=== PATIENT | male | born 1940 | race Caucasian/White ===

== ENCOUNTER 2017-04-08 07:57 | Observation (INO) | payer MEDICARE ==
[~2017-04-08] VITALS: Ht 185.4 cm; Wt 93.0 kg
[2017-04-08] MEDS ORDERED: SODIUM CHLORIDE 0.9% 1,000 ML IV ONE (08:22)
[2017-04-08 08:37] VITALS: BP 141/72
[2017-04-08] MEDS ORDERED: PLEASE ENTER ALLERGIES MC SCH ×2 (09:00)
[2017-04-08] MEDS ORDERED: PLEASE ENTER HEIGHT AND WEIGHT MC SCH (09:00)
[2017-04-08] MEDS ORDERED: CARV6.2512 PO (09:03)
[2017-04-08] MEDS ORDERED: LOSA50TA6 PO (09:03)
[2017-04-08] MEDS ORDERED: WARF3TAB PO (09:06)
[2017-04-08] MEDS ORDERED: ALLO300T PO (09:06)
[2017-04-08] MEDS ORDERED: WARF4TAB PO (09:06)
[2017-04-08] MEDS ORDERED: LEVO25TA4 PO (09:07)
[2017-04-08] MEDS ORDERED: ATOR20TA9 PO (09:07)
[2017-04-08] MEDS ORDERED: TRAM50TA2 PO (09:08)
[2017-04-08] MEDS ORDERED: MIDAZOLAM 1 MG/ML, 5ML ONE (09:53)
[2017-04-08] MEDS ORDERED: VERAPAMIL 2.5 MG/ML, 2ML ONE (09:53)
[2017-04-08] MEDS ORDERED: FENTANYL PF 100 MCG/2ML ONE (09:53)
[2017-04-08] MEDS ORDERED: TICAGRELOR 90 MG TABLET ONE (09:53)
[2017-04-08] MEDS ORDERED: LIDOCAINE 2%, 20ML ONE (09:54)
[2017-04-08] MEDS ORDERED: HEPARIN 1,000 UNITS/ML, 10ML ONE (09:54)
[2017-04-08] MEDS ORDERED: BIVALIRUDIN 250 MG ONE (09:54)
[2017-04-08] MEDS ORDERED: SODIUM CHLORIDE 0.9% 1,000 ML IV SCH (11:35)
[2017-04-08] MEDS ORDERED: ZOLPIDEM 5MG TABLET PO PRN (12:00)
[2017-04-08] MEDS ORDERED: BISACODYL 5 MG EC TABLET PO PRN (12:00)
[2017-04-08] MEDS ORDERED: ONDANSETRON 2MG/ML, 2ML IVPush PRN (12:00)
[2017-04-08] MEDS ORDERED: CARVEDILOL 6.25 MG TABLET PO STA (13:47)
[2017-04-08] MEDS ORDERED: ACETAMINOPHEN 325 MG TABLET ONE (14:17)
[2017-04-08] MEDS: ACETAMINOPHEN 325 MG TABLET PO PRN (14:18)
[2017-04-08 17:29] VITALS: BP 113/68
[2017-04-08] MEDS: CARVEDILOL 6.25 MG TABLET PO SCH (18:00)
[2017-04-08 19:54] VITALS: BP 112/72
[2017-04-08] MEDS ORDERED: ATORVASTATIN 20 MG TABLET PO SCH (21:00)
[2017-04-08] MEDS: ALLOPURINOL 100 MG TABLET PO SCH (21:17)
[2017-04-08] MEDS: TICAGRELOR 90 MG TABLET PO SCH (21:17)
[2017-04-09 00:18] VITALS: BP 137/81
[2017-04-09 05:03] LABS: HEMATOCRIT 44.7 % (39.2-51.8); HEMOGLOBIN 14.4 g/dL (13.7-18.0)
[2017-04-09] MEDS: CARVEDILOL 6.25 MG TABLET PO SCH (05:09)
[2017-04-09] MEDS: ACETAMINOPHEN 325 MG TABLET PO PRN (05:13)
[2017-04-09] MEDS ORDERED: LEVOTHYROXINE 25 MCG TABLET PO SCH (06:00)
[2017-04-09 07:39] VITALS: BP 116/78
[2017-04-09] MEDS: TICAGRELOR 90 MG TABLET PO SCH (08:53)
[2017-04-09] MEDS: ALLOPURINOL 100 MG TABLET PO SCH (08:53)
[2017-04-09] MEDS ORDERED: ASPIRIN 81 MG TABLET EC PO SCH (09:00)
[2017-04-09] MEDS ORDERED: LOSARTAN 50MG TABLET PO SCH (09:00)
[2017-04-09] MEDS ORDERED: TICA90TA PO (09:09)
[2017-04-09] MEDS ORDERED: WARFARIN 2 MG TABLET PO-COUM SCH (18:00)
[2017-04-10] MEDS ORDERED: WARFARIN 3 MG TABLET PO-COUM SCH (18:00)
[2017-04-14] MEDS ORDERED: LEVO75TA5 PO (15:39)
[2017-04-14] MEDS ORDERED: LOSA25TA5 PO (15:39)
== END 2017-04-09 14:02 | disposition home or self-care (01) ==
LOC: CACL 07:57 → ORIP 11:35 → 5SO 17:15
PROVIDERS: ADMIT Internal Medicine Cardiovascular Disease; ATTEND Internal Medicine Cardiovascular Disease
DX: I25.110 Atherosclerotic heart disease of native coronary artery with unstable angina pectoris (principal); I42.9 Cardiomyopathy, unspecified; I48.91 Unspecified atrial fibrillation; I10 Essential (primary) hypertension; E78.2 Mixed hyperlipidemia; I25.2 Old myocardial infarction
CPT/HCPCS: 36415; 85014; 85018; 85610; 93005; 93458; 99156; 99157; C1725; C1769; C1874; C1887; C1894; G0378; J0583; J2250; J3010; J3490; Q9967; J1644

== ENCOUNTER → 2017-11-21 | Outpatient (CLI) | payer MEDICARE, BC ==
[~2017-11-21] MED LIST: ALLO100T30 PO; ALLO300T PO; ATOR20TA9 PO; CARV6.2512 PO; DOCU-131 PO; LEVO25TA4 PO; LEVO75TA5 PO; LOSA25TA5 PO; LOSA50TA6 PO; MAGN400T7 PO; PANT40TA5 PO; RIVA20TA PO; SPIR25TA PO; TEMA15CA6 PO; TICA90TA PO; TRAM50TA2 PO; TRIA1KIT12 TP; WARF3TAB PO; WARF4TAB PO
== END | disposition home or self-care (01) ==
LOC: CVU 14:25
PROVIDERS: ATTEND Physician Assistant
DX: Z01.818 Encounter for other preprocedural examination (principal); I42.9 Cardiomyopathy, unspecified; I10 Essential (primary) hypertension; I25.2 Old myocardial infarction
CPT/HCPCS: 93306

== ENCOUNTER 2018-03-10 12:00 | Inpatient (IN) | payer MEDICARE, BC ==
[~2018-03-10] VITALS: Ht 185.4 cm; Wt 90.0 kg
[~2018-03-10 12:00] MED LIST changes: +CARV3.1212 PO; +FURO-93 PO; +MAGN27TA3 PO; +TRIA15CR3 TP
[2018-03-10] MEDS ORDERED: MULT-658 PO (13:19)
[2018-03-10] MEDS ORDERED: CARV3.1212 PO (13:19)
[2018-03-10] MEDS ORDERED: CETI5TAB3 PO (13:19)
[2018-03-10 13:30] VITALS: BP 119/80
[2018-03-10] MEDS ORDERED: hydrALAzine 20 MG/ML, 1ML IVPush PRN (13:30)
[2018-03-10] MEDS ORDERED: LABETALOL 5MG/ML, 20ML IVPush PRN (13:30)
[2018-03-10 14:34] LABS: BASOPHILS # (AUTO) 0.02 x10^3/uL (0-0.1); BASOPHILS % (AUTO) 0 % (0-1); EOSINOPHILS # (AUTO) 0.48 x10^3/uL (0-0.4); EOSINOPHILS % (AUTO) 5 % (1-7); LYMPHOCYTES # (AUTO) 0.86 x10^3/uL (1-3.4); LYMPHOCYTES % (AUTO) 10 % (22-44); MD NO; MEAN CORPUSCULAR HEMOGLOBIN 32.1 pg (27.5-34.5); MEAN CORPUSCULAR HGB CONC 33.2 g/dL (33.2-36.2); MEAN CORPUSCULAR VOLUME 96.8 fL (81-97); MEAN PLATELET VOLUME 9.4 fL (7.4-10.4); MONOCYTES # (AUTO) 0.79 x10^3/uL (0.2-0.8); MONOCYTES % (AUTO) 9 % (2-9); NEUTROPHILS # (AUTO) 6.83 x10^3/uL (1.8-6.8); NEUTROPHILS % (AUTO) 76 % (42-75); PLATELET COUNT 146 x10^3/uL (130-400); RED BLOOD COUNT 3.46 x10^6/uL (4.38-5.82); RED CELL DISTRIBUTION WIDTH 18.2 % (9.4-14.8)
[2018-03-10 14:40] LABS: % IRON SATURATION 10 % (20-55); ANION GAP 10 mmol/L (5-15); CALCIUM 8.1 mg/dL (8.5-10.1); CHLORIDE 92 mmol/L (98-107); CREATININE 2.34 mg/dL (0.7-1.3); IRON LEVEL 33 mcg/dL (65-175); TOTAL IRON BINDING CAPACITY 336 mcg/dL (250-450)
[2018-03-10 14:51] LABS: CREATINE KINASE, TOTAL 262 U/L (39-308)
[2018-03-10 17:46] LABS: MICROSCOPIC INDICATED
[2018-03-10 17:48] LABS: CHLORIDE,URINE RANDOM 20 mmol/L; POTASSIUM,URINE RANDOM 48 mmol/L; SODIUM,URINE RANDOM 20 mmol/L
[2018-03-10] MEDS: FUROSEMIDE 20 MG/2 ML IV SCH (18:00)
[2018-03-10] MEDS: ONDANSETRON ODT 4 MG PO PRN (18:00)
[2018-03-10 18:52] LABS: OSMOLALITY,URINE 419 mOsm/kg (500-850)
[2018-03-10 19:34] VITALS: BP 129/81
[2018-03-10] MEDS ORDERED: TEMAZEPAM 15 MG CAPSULE PO PRN (20:30)
[2018-03-10] MEDS ORDERED: CETIRIZINE 10 MG TABLET PO PRN (20:30)
[2018-03-10] MEDS ORDERED: ONDANSETRON ODT 4 MG PO PRN (20:30)
[2018-03-10] MEDS ORDERED: TRIAMCINOLONE CRM 0.1%, 15GM TP PRN (20:30)
[2018-03-10] MEDS ORDERED: DOCUSATE 100 MG CAPSULE PO SCH (21:00)
[2018-03-10] MEDS: DOCUSATE 100 MG CAPSULE PO SCH (21:22)
[2018-03-10] MEDS: ATORVASTATIN 40 MG TABLET PO SCH (21:22)
[2018-03-10] MEDS: CARVEDILOL 3.125 MG TABLET PO SCH (21:22)
[2018-03-10] MEDS: ALLOPURINOL 100 MG TABLET PO SCH (21:22)
[2018-03-10] MEDS ORDERED: ACETAMINOPHEN 325 MG TABLET ONE (22:14)
[2018-03-10] MEDS: ACETAMINOPHEN 325 MG TABLET PO PRN (22:16)
[2018-03-11 01:46] VITALS: BP 100/62
[2018-03-11] MEDS: ACETAMINOPHEN 325 MG TABLET PO PRN ×2 (03:32→22:04)
[2018-03-11] MEDS: ONDANSETRON ODT 4 MG PO PRN ×3 (04:31→21:33)
[2018-03-11 06:08] LABS: BASOPHILS # (AUTO) 0.01 x10^3/uL (0-0.1); BASOPHILS % (AUTO) 0 % (0-1); EOSINOPHILS # (AUTO) 0.65 x10^3/uL (0-0.4); EOSINOPHILS % (AUTO) 6 % (1-7); LYMPHOCYTES # (AUTO) 0.98 x10^3/uL (1-3.4); LYMPHOCYTES % (AUTO) 10 % (22-44); MD NO; MEAN CORPUSCULAR HEMOGLOBIN 32.1 pg (27.5-34.5); MEAN CORPUSCULAR HGB CONC 33.3 g/dL (33.2-36.2); MEAN CORPUSCULAR VOLUME 96.6 fL (81-97); MEAN PLATELET VOLUME 8.9 fL (7.4-10.4); MONOCYTES # (AUTO) 1.09 x10^3/uL (0.2-0.8); MONOCYTES % (AUTO) 11 % (2-9); NEUTROPHILS # (AUTO) 7.38 x10^3/uL (1.8-6.8); NEUTROPHILS % (AUTO) 73 % (42-75); PLATELET COUNT 174 x10^3/uL (130-400); RED BLOOD COUNT 3.52 x10^6/uL (4.38-5.82); RED CELL DISTRIBUTION WIDTH 18.4 % (9.4-14.8)
[2018-03-11 06:19] LABS: ALBUMIN 2.8 g/dL (3.4-5.0); ANION GAP 11 mmol/L (5-15); CALCIUM 8.4 mg/dL (8.5-10.1); CHLORIDE 91 mmol/L (98-107)
[2018-03-11 06:22] LABS: ALANINE AMINOTRANSFERASE 12 U/L (12-78); ALKALINE PHOSPHATASE 208 U/L (45-117); BILIRUBIN,TOTAL 2.7 mg/dL (0.2-1.0); TOTAL PROTEIN 5.8 g/dL (6.4-8.2)
[2018-03-11 07:09] VITALS: BP 110/70
[2018-03-11] MEDS: [UNRECOGNIZED DRUG - OTHER] TP SCH (09:00)
[2018-03-11] MEDS: MULTIVITAMIN 1 TABLET PO SCH (09:19)
[2018-03-11] MEDS: FUROSEMIDE 20 MG/2 ML IV SCH (09:19)
[2018-03-11] MEDS: LEVOTHYROXINE 75 MCG TABLET PO SCH (09:19)
[2018-03-11] MEDS: DOCUSATE 100 MG CAPSULE PO SCH ×2 (09:19→21:33)
[2018-03-11] MEDS: CARVEDILOL 3.125 MG TABLET PO SCH ×2 (09:20→21:33)
[2018-03-11] MEDS: ALLOPURINOL 100 MG TABLET PO SCH ×2 (09:20→21:33)
[2018-03-11 12:31] VITALS: BP 116/71
[2018-03-11 14:20] VITALS: BP 119/73
[2018-03-11] MEDS: RIVAROXABAN 20 MG TABLET PO SCH (17:42)
[2018-03-11 21:29] VITALS: BP 107/74
[2018-03-11] MEDS: ATORVASTATIN 40 MG TABLET PO SCH (21:33)
[2018-03-12 02:15] VITALS: BP 114/76
[2018-03-12 05:47] LABS: MEAN CORPUSCULAR HEMOGLOBIN 32.8 pg (27.5-34.5); MEAN CORPUSCULAR HGB CONC 33.7 g/dL (33.2-36.2); MEAN CORPUSCULAR VOLUME 97.3 fL (81-97); MEAN PLATELET VOLUME 8.5 fL (7.4-10.4); PLATELET COUNT 171 x10^3/uL (130-400); RED BLOOD COUNT 3.14 x10^6/uL (4.38-5.82); RED CELL DISTRIBUTION WIDTH 17.9 % (9.4-14.8)
[2018-03-12 05:56] LABS: ALBUMIN 2.5 g/dL (3.4-5.0); ANION GAP 10 mmol/L (5-15); CALCIUM 8.3 mg/dL (8.5-10.1); CHLORIDE 94 mmol/L (98-107)
[2018-03-12 06:37] LABS: BASOPHILS # (AUTO) 0.01 x10^3/uL (0-0.1); BASOPHILS % (AUTO) 0 % (0-1); EOSINOPHILS # (AUTO) 0.91 x10^3/uL (0-0.4); EOSINOPHILS % (AUTO) 8 % (1-7); LYMPHOCYTES # (AUTO) 1.34 x10^3/uL (1-3.4); LYMPHOCYTES % (AUTO) 12 % (22-44); MD SCAN; MONOCYTES # (AUTO) 1.46 x10^3/uL (0.2-0.8); MONOCYTES % (AUTO) 13 % (2-9); NEUTROPHILS # (AUTO) 7.43 x10^3/uL (1.8-6.8); NEUTROPHILS % (AUTO) 67 % (42-75)
[2018-03-12 06:54] VITALS: BP 117/68
[2018-03-12] MEDS: LEVOTHYROXINE 75 MCG TABLET PO SCH (09:00)
[2018-03-12] MEDS: ALLOPURINOL 100 MG TABLET PO SCH ×2 (09:00→20:21)
[2018-03-12] MEDS: CARVEDILOL 3.125 MG TABLET PO SCH ×2 (09:00→20:21)
[2018-03-12] MEDS: [UNRECOGNIZED DRUG - OTHER] TP SCH (09:00)
[2018-03-12] MEDS: DOCUSATE 100 MG CAPSULE PO SCH ×2 (09:00→20:07)
[2018-03-12] MEDS: FUROSEMIDE 20 MG/2 ML IV SCH (09:00)
[2018-03-12] MEDS: MULTIVITAMIN 1 TABLET PO SCH (09:00)
[2018-03-12 11:34] LABS: ALBUMIN 2.7 g/dL (3.4-5.0); BILIRUBIN, DIRECT 1.9 mg/dL (0.1-0.2)
[2018-03-12] MEDS ORDERED: ONDANSETRON 2MG/ML, 2ML ONE (11:34)
[2018-03-12 11:41] LABS: BILIRUBIN,INDIRECT 1.2 mg/dL (0.0-2.0); BILIRUBIN,TOTAL 3.1 mg/dL (0.2-1.0); C-REACTIVE PROTEIN, QUANT 7.8 mg/dL (0.02-0.49); TOTAL PROTEIN 5.6 g/dL (6.4-8.2)
[2018-03-12] MEDS ORDERED: ONDANSETRON 2MG/ML, 2ML IVPush PRN (12:00)
[2018-03-12 12:58] LABS: CULTURE INDICATED? YES; MICROSCOPIC INDICATED
[2018-03-12] MEDS ORDERED: DIPHENHYDRAMINE 50 MG/ML, 1ML IVPush ONE (14:00)
[2018-03-12] MEDS: MEROPENEM 500 MG in SODIUM CHLORIDE 0.9% 100 ML IV SCH (16:22)
[2018-03-12 20:02] VITALS: BP 93/55
[2018-03-12] MEDS: RIVAROXABAN 20 MG TABLET PO SCH (20:07)
[2018-03-12] MEDS: ACETAMINOPHEN 325 MG TABLET PO PRN (20:13)
[2018-03-12] MEDS: ATORVASTATIN 40 MG TABLET PO SCH (20:18)
[2018-03-13 01:35] VITALS: BP 126/74
[2018-03-13] MEDS: BISACODYL 10 MG SUPP PR PRN ×2 (01:39→09:58)
[2018-03-13] MEDS: ONDANSETRON ODT 4 MG PO PRN (02:38)
[2018-03-13] MEDS: MEROPENEM 500 MG in SODIUM CHLORIDE 0.9% 100 ML IV SCH ×2 (04:30→15:28)
[2018-03-13] MEDS: ACETAMINOPHEN 325 MG TABLET PO PRN ×2 (04:35→21:19)
[2018-03-13 06:45] VITALS: BP 101/58
[2018-03-13 07:48] LABS: ALBUMIN 2.4 g/dL (3.4-5.0); ANION GAP 12 mmol/L (5-15); CALCIUM 7.8 mg/dL (8.5-10.1); CHLORIDE 97 mmol/L (98-107)
[2018-03-13 07:52] LABS: ALANINE AMINOTRANSFERASE 14 U/L (12-78); ALKALINE PHOSPHATASE 171 U/L (45-117); BILIRUBIN, DIRECT 2.1 mg/dL (0.1-0.2); BILIRUBIN,TOTAL 3.8 mg/dL (0.2-1.0); CREATININE 1.08 mg/dL (0.7-1.3)
[2018-03-13] MEDS: [UNRECOGNIZED DRUG - OTHER] TP SCH (09:00)
[2018-03-13] MEDS: MULTIVITAMIN 1 TABLET PO SCH (09:00)
[2018-03-13] MEDS: ALLOPURINOL 100 MG TABLET PO SCH ×2 (09:00→21:00)
[2018-03-13] MEDS: DOCUSATE 100 MG CAPSULE PO SCH ×2 (09:57→21:05)
[2018-03-13] MEDS: FUROSEMIDE 20 MG/2 ML IV SCH (09:58)
[2018-03-13] MEDS: CARVEDILOL 3.125 MG TABLET PO SCH ×2 (09:58→21:06)
[2018-03-13 10:28] LABS: BASOPHILS # (AUTO) 0.04 x10^3/uL (0-0.1); BASOPHILS % (AUTO) 1 % (0-1); EOSINOPHILS # (AUTO) 0.49 x10^3/uL (0-0.4); EOSINOPHILS % (AUTO) 6 % (1-7); LYMPHOCYTES # (AUTO) 1.06 x10^3/uL (1-3.4); LYMPHOCYTES % (AUTO) 12 % (22-44); MD NO; MEAN CORPUSCULAR HEMOGLOBIN 32.2 pg (27.5-34.5); MEAN CORPUSCULAR HGB CONC 33.3 g/dL (33.2-36.2); MEAN CORPUSCULAR VOLUME 96.9 fL (81-97); MEAN PLATELET VOLUME 8.9 fL (7.4-10.4); MONOCYTES # (AUTO) 0.96 x10^3/uL (0.2-0.8); MONOCYTES % (AUTO) 11 % (2-9); NEUTROPHILS # (AUTO) 6.18 x10^3/uL (1.8-6.8); NEUTROPHILS % (AUTO) 71 % (42-75); PLATELET COUNT 180 x10^3/uL (130-400); RED BLOOD COUNT 3.02 x10^6/uL (4.38-5.82)
[2018-03-13 16:09] VITALS: BP 101/59
[2018-03-13] MEDS: RIVAROXABAN 20 MG TABLET PO SCH (18:35)
[2018-03-13 20:32] VITALS: BP 113/72
[2018-03-13] MEDS: ATORVASTATIN 40 MG TABLET PO SCH (21:00)
[2018-03-14 01:01] VITALS: BP 93/51
[2018-03-14] MEDS: ACETAMINOPHEN 325 MG TABLET PO PRN ×3 (03:41→20:29)
[2018-03-14] MEDS: MEROPENEM 500 MG in SODIUM CHLORIDE 0.9% 100 ML IV SCH (03:41)
[2018-03-14 05:11] LABS: BASOPHILS # (AUTO) 0.04 x10^3/uL (0-0.1); BASOPHILS % (AUTO) 1 % (0-1); EOSINOPHILS # (AUTO) 0.72 x10^3/uL (0-0.4); EOSINOPHILS % (AUTO) 9 % (1-7); LYMPHOCYTES % (AUTO) 14 % (22-44); MD NO; MEAN CORPUSCULAR HEMOGLOBIN 32.7 pg (27.5-34.5); MEAN CORPUSCULAR HGB CONC 34.3 g/dL (33.2-36.2); MEAN CORPUSCULAR VOLUME 95.4 fL (81-97); MEAN PLATELET VOLUME 7.9 fL (7.4-10.4); MONOCYTES # (AUTO) 1.08 x10^3/uL (0.2-0.8); MONOCYTES % (AUTO) 13 % (2-9); NEUTROPHILS # (AUTO) 5.32 x10^3/uL (1.8-6.8); NEUTROPHILS % (AUTO) 64 % (42-75); PLATELET COUNT 182 x10^3/uL (130-400); RED BLOOD COUNT 3.11 x10^6/uL (4.38-5.82); RED CELL DISTRIBUTION WIDTH 17.8 % (9.4-14.8)
[2018-03-14 05:23] LABS: CALCIUM 7.7 mg/dL (8.5-10.1); CHLORIDE 96 mmol/L (98-107)
[2018-03-14 05:29] LABS: ALANINE AMINOTRANSFERASE 17 U/L (12-78); ALBUMIN 2.5 g/dL (3.4-5.0); ALKALINE PHOSPHATASE 168 U/L (45-117); ANION GAP 9 mmol/L (5-15); BILIRUBIN,TOTAL 4.5 mg/dL (0.2-1.0); CREATININE 1.05 mg/dL (0.7-1.3); TOTAL PROTEIN 5.1 g/dL (6.4-8.2)
[2018-03-14] MEDS: LEVOTHYROXINE 75 MCG TABLET PO SCH (05:52)
[2018-03-14] MEDS ORDERED: DIGOXIN 0.25 MG/ML, 2ML IVPush ONE ×2 (07:30→11:30)
[2018-03-14] MEDS: FUROSEMIDE 20 MG/2 ML IV SCH (08:00)
[2018-03-14] MEDS: ALLOPURINOL 100 MG TABLET PO SCH ×2 (08:00→20:29)
[2018-03-14] MEDS: CARVEDILOL 3.125 MG TABLET PO SCH ×2 (08:00→20:29)
[2018-03-14] MEDS: MULTIVITAMIN 1 TABLET PO SCH (08:00)
[2018-03-14] MEDS: DOCUSATE 100 MG CAPSULE PO SCH ×2 (08:00→20:28)
[2018-03-14] MEDS: [UNRECOGNIZED DRUG - OTHER] TP SCH ×2 (08:01→10:31)
[2018-03-14 08:02] VITALS: BP 115/67
[2018-03-14 13:24] VITALS: BP 115/68
[2018-03-14] MEDS: RIVAROXABAN 20 MG TABLET PO SCH (17:35)
[2018-03-14 18:46] VITALS: BP 107/55
[2018-03-14] MEDS: ATORVASTATIN 40 MG TABLET PO SCH (20:29)
[2018-03-14] MEDS: MELATONIN 5 MG TABLET PO SCH (20:29)
[2018-03-15 00:47] VITALS: BP 104/65
[2018-03-15 05:21] LABS: ALBUMIN 2.5 g/dL (3.4-5.0); ANION GAP 9 mmol/L (5-15); CALCIUM 7.8 mg/dL (8.5-10.1); CHLORIDE 95 mmol/L (98-107); CREATININE 0.92 mg/dL (0.7-1.3)
[2018-03-15] MEDS: LEVOTHYROXINE 75 MCG TABLET PO SCH (05:32)
[2018-03-15 07:50] VITALS: BP 101/60
[2018-03-15] MEDS: [UNRECOGNIZED DRUG - OTHER] TP SCH (09:00)
[2018-03-15] MEDS: DOCUSATE 100 MG CAPSULE PO SCH ×2 (09:26→21:21)
[2018-03-15] MEDS: MULTIVITAMIN 1 TABLET PO SCH (09:26)
[2018-03-15] MEDS: CARVEDILOL 3.125 MG TABLET PO SCH ×2 (09:27→21:15)
[2018-03-15] MEDS: FUROSEMIDE 40 MG TABLET PO SCH (09:27)
[2018-03-15] MEDS: ALLOPURINOL 100 MG TABLET PO SCH ×2 (09:27→21:21)
[2018-03-15] MEDS ORDERED: POTASSIUM CHLORIDE 20 MEQ TAB.ER.PRT PO ONE (13:00)
[2018-03-15 14:23] VITALS: BP 105/68
[2018-03-15] MEDS: RIVAROXABAN 20 MG TABLET PO SCH (17:25)
[2018-03-15 20:39] VITALS: BP 91/55
[2018-03-15] MEDS: MELATONIN 5 MG TABLET PO SCH (21:21)
[2018-03-15] MEDS: ATORVASTATIN 40 MG TABLET PO SCH (21:21)
[2018-03-16 02:08] VITALS: BP 99/58
[2018-03-16 05:19] LABS: ALBUMIN 2.6 g/dL (3.4-5.0); ANION GAP 8 mmol/L (5-15); CALCIUM 7.6 mg/dL (8.5-10.1); CHLORIDE 94 mmol/L (98-107)
[2018-03-16] MEDS: LEVOTHYROXINE 75 MCG TABLET PO SCH (06:23)
[2018-03-16 07:18] VITALS: BP 119/70
[2018-03-16] MEDS: ALLOPURINOL 100 MG TABLET PO SCH (08:43)
[2018-03-16] MEDS: FUROSEMIDE 40 MG TABLET PO SCH (08:43)
[2018-03-16] MEDS: CARVEDILOL 3.125 MG TABLET PO SCH (08:43)
[2018-03-16] MEDS: DOCUSATE 100 MG CAPSULE PO SCH (08:43)
[2018-03-16] MEDS: MULTIVITAMIN 1 TABLET PO SCH (08:43)
[2018-03-16] MEDS ORDERED: ATOR20TA9 PO (09:12)
[2018-03-16] MEDS ORDERED: MULT-658 PO (09:12)
[2018-03-16] MEDS ORDERED: FURO40TA6 PO (09:12)
[2018-03-16] MEDS ORDERED: RIVA20TA PO (09:12)
[2018-03-16] MEDS ORDERED: ONDA4TAB13 PO (09:12)
[2018-03-16] MEDS ORDERED: LEVO75TA5 PO (09:12)
[2018-03-16] MEDS ORDERED: DOCU-131 PO (09:12)
[2018-03-16] MEDS ORDERED: LOSA25TA5 PO (09:12)
[2018-03-16] MEDS ORDERED: CARV3.1212 PO (09:12)
[2018-03-16] MEDS ORDERED: LOSARTAN 25MG TABLET PO SCH (09:30)
== END 2018-03-16 14:25 | disposition home health service (06) | DRG 682 ==
LOC: 4EST 12:49 → 5SO 03-12 11:29 → DCLOUNGE 03-16 14:25
PROVIDERS: ADMIT Internal Medicine; ATTEND Internal Medicine
DX: N17.9 Acute kidney failure, unspecified (principal); E43 Unspecified severe protein-calorie malnutrition; G93.40 Encephalopathy, unspecified; D68.59 Other primary thrombophilia; R18.8 Other ascites; I13.0 Hypertensive heart and chronic kidney disease with heart failure and stage 1 through stage 4 chronic kidney disease, or unspecified chronic kidney disease; K59.00 Constipation, unspecified; I48.2 Chronic atrial fibrillation; Z68.26 Body mass index [BMI] 26.0-26.9, adult; M10.9 Gout, unspecified; I95.9 Hypotension, unspecified; R33.9 Retention of urine, unspecified; I25.10 Atherosclerotic heart disease of native coronary artery without angina pectoris; E78.5 Hyperlipidemia, unspecified; N18.3 Chronic kidney disease, stage 3 (moderate); I50.9 Heart failure, unspecified; I08.1 Rheumatic disorders of both mitral and tricuspid valves; K76.1 Chronic passive congestion of liver; Z96.641 Presence of right artificial hip joint; D64.9 Anemia, unspecified; G89.29 Other chronic pain; M19.90 Unspecified osteoarthritis, unspecified site; N25.0 Renal osteodystrophy; Z79.01 Long term (current) use of anticoagulants; Z79.899 Other long term (current) drug therapy; Z82.49 Family history of ischemic heart disease and other diseases of the circulatory system; Z85.828 Personal history of other malignant neoplasm of skin; Z87.440 Personal history of urinary (tract) infections; Z87.442 Personal history of urinary calculi; Z87.891 Personal history of nicotine dependence; Z95.0 Presence of cardiac pacemaker; Z95.5 Presence of coronary angioplasty implant and graft
CPT/HCPCS: 36415; 70450; 74181; 76700; 76770; 80048; 80053; 80069; 80076; 81001; 82140; 82248; 82306; 82310; 82330; 82436; 82550; 82728; 83540; 83550; 83605; 83735; 83880; 83930; 83935; 83970; 84100; 84133; 84145; 84300; 84443; 84550; 85025; 86140; 87040; 87086; 87205; 93306; J2185; Q0162; J1160; J1200; J1940

== ENCOUNTER 2018-03-23 06:39 | Inpatient (IN) | payer MEDICARE, BC ==
[~2018-03-23] VITALS: Ht 182.9 cm; Wt 96.2 kg
[2018-03-23] VITALS (21 sets, daily range): BP systolic 73–97; BP diastolic 26–49
[~2018-03-23 06:39] MED LIST changes: +CETI5TAB3 PO; +FURO40TA6 PO; +MULT-658 PO; +ONDA4TAB13 PO
[2018-03-23] MEDS ORDERED: PANTOPRAZOLE 80 MG in SODIUM CHLORIDE 0.9% 50 ML IVPB ONE (06:53)
[2018-03-23] MEDS ORDERED: SODIUM CHLORIDE 0.9% 1,000 ML IV ONE ×2 (06:53→08:44)
[2018-03-23] MEDS ORDERED: PANTOPRAZOLE 80 MG in SODIUM CHLORIDE 0.9% 100 ML IV SCH (06:53)
[2018-03-23] MEDS ORDERED: SODIUM CHLORIDE 0.9% 1,000ML IVBOLUS ONE (07:00)
[2018-03-23] MEDS ORDERED: SODIUM CHLORIDE FLUSH 10ML SYR IVF ONE (07:00)
[2018-03-23 07:28] LABS: CHLORIDE 96 mmol/L (98-107)
[2018-03-23 07:29] LABS: MEAN CORPUSCULAR HEMOGLOBIN 33.4 pg (27.5-34.5); MEAN CORPUSCULAR HGB CONC 33.8 g/dL (33.2-36.2); MEAN CORPUSCULAR VOLUME 99.1 fL (81-97); MEAN PLATELET VOLUME 8.1 fL (7.4-10.4); PLATELET COUNT 254 x10^3/uL (130-400); RED BLOOD COUNT 1.46 x10^6/uL (4.38-5.82)
[2018-03-23 07:34] LABS: ALBUMIN 2.2 g/dL (3.4-5.0); ANION GAP 11 mmol/L (5-15); CALCIUM 7.8 mg/dL (8.5-10.1)
[2018-03-23 07:39] LABS: ALANINE AMINOTRANSFERASE 21 U/L (12-78); ALKALINE PHOSPHATASE 136 U/L (45-117); BILIRUBIN,TOTAL 1.7 mg/dL (0.2-1.0); CREATININE 0.92 mg/dL (0.7-1.3); TOTAL PROTEIN 4.6 g/dL (6.4-8.2)
[2018-03-23 07:44] LABS: MD YES
[2018-03-23 07:59] LABS: ANISOCYTOSIS 2+; HYPOCHROMIA 1+; LYMPH#(MANUAL) 0.47 x10^3/uL (1-3.4); LYMPHS% (MANUAL) 6 % (22-44); MONOS#(MANUAL) 0.16 x10^3/uL (0.3-2.7); MONOS% (MANUAL) 2 % (2-9); POLYCHROMASIA 1+; SEG#(MANUAL) 7.18 x10^3/uL (1.8-6.8); SEGS% (MANUAL) 92 % (42-75)
[2018-03-23 08:00] LABS: OVALOCYTES 1+; SPHEROCYTES 1+
[2018-03-23 08:04] LABS: <PLATELET ESTIMATE> ADEQUATE; <PLT MORPHOLOGY> NORMAL PLT MORPH
[2018-03-23 08:11] LABS: INTERNATIONAL NORMALIZED RATIO 1.78 (0.93-1.1); PROTHROMBIN TIME 18.3 Seconds (9.6-11.5)
[2018-03-23 08:38] LABS: MICROSCOPIC NOT IND
[2018-03-23 08:51] LABS: CULTURE INDICATED? NO
[2018-03-23] MEDS ORDERED: SODIUM CHLORIDE FLUSH 10ML SYR IVF PRN (09:00)
[2018-03-23] MEDS ORDERED: POLYETHYLENE GLYCOL 17 GM PACKET PO PRN (09:00)
[2018-03-23] MEDS ORDERED: DOCUSATE 100 MG CAPSULE PO PRN (09:00)
[2018-03-23] MEDS ORDERED: BISACODYL 10 MG SUPP PR PRN (09:30)
[2018-03-23] MEDS ORDERED: ONDANSETRON 2MG/ML, 2ML IVPush PRN (09:30)
[2018-03-23] MEDS ORDERED: TRIAMCINOLONE CRM 0.1%, 15GM TP PRN (10:30)
[2018-03-23] MEDS ORDERED: NOREPINEPHRINE 4 MG in SODIUM CHLORIDE 0.9% 246 ML IV PRN (10:30)
[2018-03-23] MEDS: SODIUM CHLORIDE 0.9% 1,000 ML IV SCH ×2 (11:10→20:58)
[2018-03-23] MEDS: ACETAMINOPHEN 325 MG TABLET PO PRN (12:53)
[2018-03-23] MEDS: POLYETHYLENE GLYCOL 17 GM PACKET NG SCH (14:30)
[2018-03-23] MEDS: SIMETHICONE 125 MG CHEW TAB PO SCH ×2 (16:00→21:25)
[2018-03-23] MEDS: PANTOPRAZOLE 80 MG in SODIUM CHLORIDE 0.9% 100 ML IV SCH (17:01)
[2018-03-23] MEDS: ALLOPURINOL 100 MG TABLET PO SCH (21:25)
[2018-03-23] MEDS: ATORVASTATIN 40 MG TABLET PO SCH (21:25)
[2018-03-23] MEDS ORDERED: SODIUM CHLORIDE 0.9%, 500ML IVBOLUS ONE (23:30)
[2018-03-24] MEDS: PANTOPRAZOLE 80 MG in SODIUM CHLORIDE 0.9% 100 ML IV SCH ×3 (02:00→23:47)
[2018-03-24 03:55] LABS: MEAN CORPUSCULAR HEMOGLOBIN 31.1 pg (27.5-34.5); MEAN CORPUSCULAR HGB CONC 33.8 g/dL (33.2-36.2); MEAN CORPUSCULAR VOLUME 92.1 fL (81-97); MEAN PLATELET VOLUME 7.7 fL (7.4-10.4); PLATELET COUNT 212 x10^3/uL (130-400); RED CELL DISTRIBUTION WIDTH 18.5 % (9.4-14.8)
[2018-03-24 04:00] VITALS: BP 96/35
[2018-03-24 04:04] LABS: INTERNATIONAL NORMALIZED RATIO 1.46 (0.93-1.1); MD YES; PROTHROMBIN TIME 14.9 Seconds (9.6-11.5)
[2018-03-24 04:08] LABS: ALBUMIN 1.8 g/dL (3.4-5.0); ANION GAP 9 mmol/L (5-15); CALCIUM 7.1 mg/dL (8.5-10.1); CHLORIDE 106 mmol/L (98-107)
[2018-03-24 04:09] LABS: ANISOCYTOSIS 2+; BAND#(MANUAL) 0.08 x10^3/uL; BANDS%(MANUAL) 1 % (0-7); LYMPH#(MANUAL) 1.01 x10^3/uL (1-3.4); LYMPHS% (MANUAL) 12 % (22-44); METAMYELOCYTES# (MANUAL) 0.08 x10^3/uL (0-0); METAMYELOCYTES% (MANUAL) 1 % (0-1); MONOS#(MANUAL) 0.67 x10^3/uL (0.3-2.7); MONOS% (MANUAL) 8 % (2-9); POLYCHROMASIA 1+; SEG#(MANUAL) 6.55 x10^3/uL (1.8-6.8); SEGS% (MANUAL) 78 % (42-75)
[2018-03-24 04:10] LABS: ECHINOCYTES 1+; OVALOCYTES 1+
[2018-03-24 04:11] LABS: SPHEROCYTES 1+
[2018-03-24 04:12] LABS: <PLATELET ESTIMATE> ADEQUATE; <PLT MORPHOLOGY> NORMAL PLT MORPH; ALANINE AMINOTRANSFERASE 17 U/L (12-78); ALKALINE PHOSPHATASE 97 U/L (45-117); BILIRUBIN,TOTAL 3.2 mg/dL (0.2-1.0); CREATININE 0.95 mg/dL (0.7-1.3); TOTAL PROTEIN 3.7 g/dL (6.4-8.2)
[2018-03-24 05:06] VITALS: BP 94/28
[2018-03-24 05:31] VITALS: BP 98/40
[2018-03-24 06:06] VITALS: BP 97/31
[2018-03-24 06:40] VITALS: BP 113/45
[2018-03-24] MEDS: SIMETHICONE 125 MG CHEW TAB PO SCH ×4 (07:00→20:27)
[2018-03-24] MEDS: ALLOPURINOL 100 MG TABLET PO SCH ×2 (09:00→20:27)
[2018-03-24] MEDS ORDERED: [UNRECOGNIZED DRUG - OTHER] TP SCH (09:00)
[2018-03-24] MEDS: POLYETHYLENE GLYCOL 17 GM PACKET NG SCH (09:00)
[2018-03-24] MEDS: MULTIVITAMIN 1 TABLET PO SCH (09:00)
[2018-03-24] MEDS ORDERED: PROPOFOL 10 MG/ML, 20ML ONE (09:01)
[2018-03-24] MEDS: SUCRALFATE 1 GM/10 ML UDC PO SCH ×4 (09:30→20:27)
[2018-03-24] MEDS ORDERED: EPINEPHRINE SYRINGE 0.1 MG/ML, 10ML ONE (10:09)
[2018-03-24] MEDS: SODIUM CHLORIDE 0.9% 1,000 ML IV SCH (11:24)
[2018-03-24 16:00] LABS: HEMOGRAM NOTE RECHECKED
[2018-03-24] MEDS: ATORVASTATIN 40 MG TABLET PO SCH (20:27)
[2018-03-25] MEDS: ACETAMINOPHEN 325 MG TABLET PO PRN (02:42)
[2018-03-25 03:36] LABS: ALANINE AMINOTRANSFERASE 19 U/L (12-78); ANION GAP 7 mmol/L (5-15); CALCIUM 7.3 mg/dL (8.5-10.1); CHLORIDE 107 mmol/L (98-107); CREATININE 0.92 mg/dL (0.7-1.3)
[2018-03-25 03:39] LABS: ALKALINE PHOSPHATASE 94 U/L (45-117); BILIRUBIN,TOTAL 2.5 mg/dL (0.2-1.0)
[2018-03-25 03:50] LABS: MEAN CORPUSCULAR HEMOGLOBIN 32.7 pg (27.5-34.5); MEAN CORPUSCULAR HGB CONC 34.6 g/dL (33.2-36.2); MEAN CORPUSCULAR VOLUME 94.5 fL (81-97); MEAN PLATELET VOLUME 7.8 fL (7.4-10.4); PLATELET COUNT 193 x10^3/uL (130-400); RED BLOOD COUNT 2.05 x10^6/uL (4.38-5.82); RED CELL DISTRIBUTION WIDTH 17.6 % (9.4-14.8)
[2018-03-25 04:00] VITALS: BP 88/44
[2018-03-25 04:21] LABS: MD YES
[2018-03-25 04:25] LABS: ANISOCYTOSIS 2+; BAND#(MANUAL) 0.17 x10^3/uL; BANDS%(MANUAL) 2 % (0-7); ECHINOCYTES 1+; EOS#(MANUAL) 0.09 x10^3/uL (0.0-0.4); EOS% (MANUAL) 1 % (1-7); LYMPH#(MANUAL) 1.39 x10^3/uL (1-3.4); LYMPHS% (MANUAL) 16 % (22-44); METAMYELOCYTES# (MANUAL) 0.17 x10^3/uL (0-0); METAMYELOCYTES% (MANUAL) 2 % (0-1); MONOS#(MANUAL) 0.09 x10^3/uL (0.3-2.7); MONOS% (MANUAL) 1 % (2-9); OVALOCYTES 1+; POLYCHROMASIA 1+; SEG#(MANUAL) 6.79 x10^3/uL (1.8-6.8); SEGS% (MANUAL) 78 % (42-75); SPHEROCYTES 1+
[2018-03-25 04:27] LABS: <PLATELET ESTIMATE> ADEQUATE; <PLT MORPHOLOGY> NORMAL PLT MORPH
[2018-03-25] MEDS ORDERED: MAGNESIUM SULFATE PMX 2GM/50ML 50 ML IV ONE (08:00)
[2018-03-25 08:51] VITALS: BP 106/65
[2018-03-25] MEDS: SUCRALFATE 1 GM/10 ML UDC PO SCH ×4 (08:55→21:00)
[2018-03-25] MEDS: SIMETHICONE 125 MG CHEW TAB PO SCH ×4 (08:55→21:00)
[2018-03-25] MEDS: POLYETHYLENE GLYCOL 17 GM PACKET NG SCH (08:56)
[2018-03-25] MEDS: MULTIVITAMIN 1 TABLET PO SCH (08:57)
[2018-03-25 09:00] VITALS: BP 120/57
[2018-03-25] MEDS: PANTOPRAZOLE 80 MG in SODIUM CHLORIDE 0.9% 100 ML IV SCH ×2 (09:16→21:00)
[2018-03-25 12:00] VITALS: BP 135/70
[2018-03-25] MEDS: ALLOPURINOL 100 MG TABLET PO SCH ×2 (13:26→21:00)
[2018-03-25] MEDS: ATORVASTATIN 40 MG TABLET PO SCH (21:00)
[2018-03-25] MEDS: TRAZODONE 50MG TABLET PO PRN (21:03)
[2018-03-26 04:00] VITALS: BP 111/51
[2018-03-26] MEDS: PANTOPRAZOLE 80 MG in SODIUM CHLORIDE 0.9% 100 ML IV SCH ×2 (07:10→17:37)
[2018-03-26] MEDS: SUCRALFATE 1 GM/10 ML UDC PO SCH ×4 (07:59→20:20)
[2018-03-26] MEDS: ALLOPURINOL 100 MG TABLET PO SCH ×2 (07:59→20:20)
[2018-03-26] MEDS: SIMETHICONE 125 MG CHEW TAB PO SCH ×4 (07:59→20:20)
[2018-03-26] MEDS: MULTIVITAMIN 1 TABLET PO SCH (07:59)
[2018-03-26] MEDS ORDERED: MAGNESIUM SULFATE PMX 2GM/50ML 50 ML IV ONE (08:00)
[2018-03-26] MEDS: POLYETHYLENE GLYCOL 17 GM PACKET NG SCH (08:01)
[2018-03-26] MEDS: ATORVASTATIN 40 MG TABLET PO SCH (20:20)
[2018-03-27] MEDS: PANTOPRAZOLE 80 MG in SODIUM CHLORIDE 0.9% 100 ML IV SCH (03:47)
[2018-03-27 04:00] VITALS: BP 132/68
[2018-03-27 04:18] LABS: MEAN CORPUSCULAR HEMOGLOBIN 31.7 pg (27.5-34.5); MEAN CORPUSCULAR HGB CONC 33.2 g/dL (33.2-36.2); MEAN CORPUSCULAR VOLUME 95.7 fL (81-97); MEAN PLATELET VOLUME 7.9 fL (7.4-10.4); PLATELET COUNT 196 x10^3/uL (130-400); RED BLOOD COUNT 2.48 x10^6/uL (4.38-5.82); RED CELL DISTRIBUTION WIDTH 19.4 % (9.4-14.8)
[2018-03-27 04:46] LABS: MD YES
[2018-03-27 04:58] LABS: BAND#(MANUAL) 0.41 x10^3/uL; BANDS%(MANUAL) 6 % (0-7); BASOS#(MANUAL) 0.07 x10^3/uL (0-0.1); BASOS% (MANUAL) 1 % (0-1); EOS#(MANUAL) 0.27 x10^3/uL (0.0-0.4); EOS% (MANUAL) 4 % (1-7); LYMPH#(MANUAL) 0.82 x10^3/uL (1-3.4); LYMPHS% (MANUAL) 12 % (22-44); METAMYELOCYTES# (MANUAL) 0.14 x10^3/uL (0-0); METAMYELOCYTES% (MANUAL) 2 % (0-1); MONOS#(MANUAL) 0.48 x10^3/uL (0.3-2.7); MONOS% (MANUAL) 7 % (2-9); NRBC % (MANUAL) 1 % (0-1); SEG#(MANUAL) 4.62 x10^3/uL (1.8-6.8); SEGS% (MANUAL) 68 % (42-75)
[2018-03-27 05:03] LABS: ANISOCYTOSIS 2+; OVALOCYTES 1+; POLYCHROMASIA 1+; SPHEROCYTES 1+
[2018-03-27 05:04] LABS: <PLATELET ESTIMATE> ADEQUATE; <PLT MORPHOLOGY> NORMAL PLT MORPH
[2018-03-27 08:00] VITALS: BP 122/55
[2018-03-27] MEDS: FUROSEMIDE 20 MG/2 ML IV SCH ×2 (09:57→21:09)
[2018-03-27] MEDS: ALLOPURINOL 100 MG TABLET PO SCH ×2 (09:57→21:09)
[2018-03-27] MEDS: PANTOPRAZOLE 40 MG IV IVPush SCH ×2 (09:57→21:09)
[2018-03-27] MEDS: SIMETHICONE 125 MG CHEW TAB PO SCH ×4 (09:57→21:08)
[2018-03-27] MEDS: MULTIVITAMIN 1 TABLET PO SCH (09:57)
[2018-03-27] MEDS: SUCRALFATE 1 GM/10 ML UDC PO SCH ×4 (09:57→21:09)
[2018-03-27] MEDS: POLYETHYLENE GLYCOL 17 GM PACKET NG SCH (10:37)
[2018-03-27] MEDS: POTASSIUM CHLORIDE 20 MEQ TAB.ER.PRT PO SCH (17:25)
[2018-03-27 19:39] VITALS: BP 102/67
[2018-03-27] MEDS: ATORVASTATIN 40 MG TABLET PO SCH (21:09)
[2018-03-28 01:25] VITALS: BP 114/70
[2018-03-28 06:22] LABS: ANION GAP 8 mmol/L (5-15); CALCIUM 7.4 mg/dL (8.5-10.1); CHLORIDE 103 mmol/L (98-107); CREATININE 0.99 mg/dL (0.7-1.3)
[2018-03-28 06:25] LABS: MEAN CORPUSCULAR HEMOGLOBIN 32.3 pg (27.5-34.5); MEAN CORPUSCULAR HGB CONC 33.7 g/dL (33.2-36.2); MEAN CORPUSCULAR VOLUME 95.9 fL (81-97); MEAN PLATELET VOLUME 7.9 fL (7.4-10.4); PLATELET COUNT 203 x10^3/uL (130-400); RED BLOOD COUNT 2.23 x10^6/uL (4.38-5.82); RED CELL DISTRIBUTION WIDTH 20.8 % (9.4-14.8)
[2018-03-28 06:37] LABS: MD YES
[2018-03-28 06:40] LABS: BAND#(MANUAL) 0.12 x10^3/uL; BANDS%(MANUAL) 2 % (0-7); BASOS#(MANUAL) 0.06 x10^3/uL (0-0.1); BASOS% (MANUAL) 1 % (0-1); EOS#(MANUAL) 0.06 x10^3/uL (0.0-0.4); EOS% (MANUAL) 1 % (1-7); LYMPH#(MANUAL) 1.16 x10^3/uL (1-3.4); LYMPHS% (MANUAL) 19 % (22-44); METAMYELOCYTES# (MANUAL) 0.06 x10^3/uL (0-0); METAMYELOCYTES% (MANUAL) 1 % (0-1); MONOS#(MANUAL) 0.43 x10^3/uL (0.3-2.7); MONOS% (MANUAL) 7 % (2-9); NRBC % (MANUAL) 1 % (0-1); REACTIVE LYMPHS # (MANUAL) 0.06 x10^3/uL (0-0); REACTIVE LYMPHS % (MANUAL) 1 % (0-0); SEG#(MANUAL) 4.15 x10^3/uL (1.8-6.8); SEGS% (MANUAL) 68 % (42-75)
[2018-03-28 06:42] LABS: <PLATELET ESTIMATE> ADEQUATE; <PLT MORPHOLOGY> NORMAL PLT MORPH; ANISOCYTOSIS 2+; OVALOCYTES 1+; POLYCHROMASIA 1+; SPHEROCYTES 1+
[2018-03-28 08:31] VITALS: BP 103/52
[2018-03-28] MEDS: SUCRALFATE 1 GM/10 ML UDC PO SCH ×4 (08:43→21:08)
[2018-03-28] MEDS: SIMETHICONE 125 MG CHEW TAB PO SCH ×4 (08:43→21:08)
[2018-03-28] MEDS: POTASSIUM CHLORIDE 20 MEQ TAB.ER.PRT PO SCH ×2 (08:44→21:09)
[2018-03-28] MEDS: PANTOPRAZOLE 40 MG IV IVPush SCH ×2 (08:44→21:08)
[2018-03-28] MEDS: FUROSEMIDE 20 MG/2 ML IV SCH ×2 (08:44→21:09)
[2018-03-28] MEDS: ALLOPURINOL 100 MG TABLET PO SCH ×2 (08:45→21:09)
[2018-03-28] MEDS: MULTIVITAMIN 1 TABLET PO SCH (08:45)
[2018-03-28] MEDS: POLYETHYLENE GLYCOL 17 GM PACKET NG SCH (08:45)
[2018-03-28 12:55] VITALS: BP 104/53
[2018-03-28] MEDS: BISACODYL 10 MG SUPP PR SCH ×2 (16:00→21:09)
[2018-03-28 19:38] VITALS: BP 106/68
[2018-03-28] MEDS: ATORVASTATIN 40 MG TABLET PO SCH (21:09)
[2018-03-28] MEDS: TRAZODONE 50MG TABLET PO PRN (21:28)
[2018-03-29 01:05] VITALS: BP 104/61
[2018-03-29 05:49] LABS: MEAN CORPUSCULAR HGB CONC 33.5 g/dL (33.2-36.2); MEAN CORPUSCULAR VOLUME 95.5 fL (81-97); MEAN PLATELET VOLUME 8.1 fL (7.4-10.4); PLATELET COUNT 234 x10^3/uL (130-400); RED BLOOD COUNT 2.21 x10^6/uL (4.38-5.82); RED CELL DISTRIBUTION WIDTH 19.8 % (9.4-14.8)
[2018-03-29 06:11] LABS: BASOPHILS # (AUTO) 0.04 x10^3/uL (0-0.1); BASOPHILS % (AUTO) 1 % (0-1); EOSINOPHILS # (AUTO) 0.11 x10^3/uL (0-0.4); EOSINOPHILS % (AUTO) 2 % (1-7); LYMPHOCYTES # (AUTO) 1.06 x10^3/uL (1-3.4); LYMPHOCYTES % (AUTO) 19 % (22-44); MD SCAN; MONOCYTES % (AUTO) 16 % (2-9); NEUTROPHILS % (AUTO) 62 % (42-75)
[2018-03-29] MEDS: SUCRALFATE 1 GM/10 ML UDC PO SCH ×4 (08:46→22:59)
[2018-03-29] MEDS: POTASSIUM CHLORIDE 20 MEQ TAB.ER.PRT PO SCH ×2 (08:46→18:06)
[2018-03-29] MEDS: SIMETHICONE 125 MG CHEW TAB PO SCH ×4 (08:46→22:59)
[2018-03-29] MEDS: FUROSEMIDE 20 MG/2 ML IV SCH ×2 (08:47→22:59)
[2018-03-29] MEDS: POLYETHYLENE GLYCOL 17 GM PACKET NG SCH (08:47)
[2018-03-29] MEDS: ALLOPURINOL 100 MG TABLET PO SCH ×2 (08:47→22:59)
[2018-03-29] MEDS: MULTIVITAMIN 1 TABLET PO SCH (08:47)
[2018-03-29] MEDS: BISACODYL 10 MG SUPP PR SCH ×2 (08:47→23:00)
[2018-03-29] MEDS: PANTOPRAZOLE 40 MG IV IVPush SCH (08:47)
[2018-03-29 10:38] VITALS: BP 97/58
[2018-03-29 13:59] VITALS: BP 95/56
[2018-03-29] MEDS: PANTOPROZOLE 40MG TABLET PO SCH (18:06)
[2018-03-29 22:54] VITALS: BP 118/62
[2018-03-29] MEDS: ATORVASTATIN 40 MG TABLET PO SCH (22:59)
[2018-03-29] MEDS: DIPHENHYDRAMINE/ZINC CRM 2%, 30GM TP PRN (23:14)
[2018-03-29] MEDS: TRAZODONE 50MG TABLET PO PRN (23:22)
[2018-03-30] VITALS (11 sets, daily range): BP systolic 97–142; BP diastolic 50–79
[2018-03-30 05:29] LABS: MEAN CORPUSCULAR HEMOGLOBIN 32.1 pg (27.5-34.5); MEAN CORPUSCULAR HGB CONC 33.9 g/dL (33.2-36.2); MEAN CORPUSCULAR VOLUME 94.6 fL (81-97); PLATELET COUNT 255 x10^3/uL (130-400); RED BLOOD COUNT 2.16 x10^6/uL (4.38-5.82)
[2018-03-30 05:33] LABS: ANION GAP 9 mmol/L (5-15); CALCIUM 7.4 mg/dL (8.5-10.1); CHLORIDE 102 mmol/L (98-107); CREATININE 1.08 mg/dL (0.7-1.3)
[2018-03-30 05:48] LABS: BASOPHILS # (AUTO) 0.04 x10^3/uL (0-0.1); BASOPHILS % (AUTO) 1 % (0-1); EOSINOPHILS # (AUTO) 0.15 x10^3/uL (0-0.4); EOSINOPHILS % (AUTO) 3 % (1-7); LYMPHOCYTES # (AUTO) 1.06 x10^3/uL (1-3.4); LYMPHOCYTES % (AUTO) 21 % (22-44); MD SCAN; MONOCYTES # (AUTO) 0.83 x10^3/uL (0.2-0.8); MONOCYTES % (AUTO) 17 % (2-9); NEUTROPHILS # (AUTO) 2.93 x10^3/uL (1.8-6.8); NEUTROPHILS % (AUTO) 58 % (42-75)
[2018-03-30] MEDS: ALLOPURINOL 100 MG TABLET PO SCH ×2 (08:18→19:42)
[2018-03-30] MEDS: POTASSIUM CHLORIDE 20 MEQ TAB.ER.PRT PO SCH ×2 (08:18→16:43)
[2018-03-30] MEDS: SIMETHICONE 125 MG CHEW TAB PO SCH ×4 (08:18→19:42)
[2018-03-30] MEDS: SUCRALFATE 1 GM/10 ML UDC PO SCH ×4 (08:18→19:42)
[2018-03-30] MEDS: MULTIVITAMIN 1 TABLET PO SCH (08:18)
[2018-03-30] MEDS: FUROSEMIDE 20 MG/2 ML IV SCH ×2 (08:19→19:42)
[2018-03-30] MEDS: POLYETHYLENE GLYCOL 17 GM PACKET NG SCH (08:22)
[2018-03-30] MEDS: PANTOPROZOLE 40MG TABLET PO SCH ×2 (08:45→16:43)
[2018-03-30] MEDS: BISACODYL 10 MG SUPP PR SCH ×3 (09:00→20:08)
[2018-03-30] MEDS: ATORVASTATIN 40 MG TABLET PO SCH (19:42)
[2018-03-30] MEDS ORDERED: BISACODYL 10 MG SUPP PR PRN (20:00)
[2018-03-30] MEDS ORDERED: LACTULOSE 20 GM/30 ML UDC PO PRN (20:00)
[2018-03-30] MEDS: SENNA/DOCUSATE TABLET PO SCH (20:08)
[2018-03-30] MEDS ORDERED: PINK LADY ENEMA 490 ML BOTTLE PR PRN (20:30)
[2018-03-31] MEDS: BISACODYL 10 MG SUPP PR SCH ×2 (01:47→21:00)
[2018-03-31 02:02] VITALS: BP 129/75
[2018-03-31 06:09] LABS: ALBUMIN 2.2 g/dL (3.4-5.0); ANION GAP 10 mmol/L (5-15); CALCIUM 7.3 mg/dL (8.5-10.1); CHLORIDE 101 mmol/L (98-107)
[2018-03-31 06:11] LABS: BASOPHILS # (AUTO) 0.04 x10^3/uL (0-0.1); BASOPHILS % (AUTO) 1 % (0-1); EOSINOPHILS # (AUTO) 0.17 x10^3/uL (0-0.4); EOSINOPHILS % (AUTO) 3 % (1-7); LYMPHOCYTES % (AUTO) 18 % (22-44); MD NO; MEAN CORPUSCULAR HEMOGLOBIN 31.1 pg (27.5-34.5); MEAN CORPUSCULAR VOLUME 94.2 fL (81-97); MONOCYTES # (AUTO) 0.89 x10^3/uL (0.2-0.8); MONOCYTES % (AUTO) 17 % (2-9); NEUTROPHILS # (AUTO) 3.31 x10^3/uL (1.8-6.8); NEUTROPHILS % (AUTO) 61 % (42-75); PLATELET COUNT 269 x10^3/uL (130-400); RED CELL DISTRIBUTION WIDTH 17.5 % (9.4-14.8)
[2018-03-31 06:13] LABS: ALANINE AMINOTRANSFERASE 27 U/L (12-78); ALKALINE PHOSPHATASE 209 U/L (45-117); BILIRUBIN,TOTAL 2.2 mg/dL (0.2-1.0); CREATININE 0.87 mg/dL (0.7-1.3); TOTAL PROTEIN 4.7 g/dL (6.4-8.2)
[2018-03-31] MEDS: POLYETHYLENE GLYCOL 17 GM PACKET NG SCH (08:22)
[2018-03-31] MEDS: POTASSIUM CHLORIDE 20 MEQ TAB.ER.PRT PO SCH ×2 (08:22→16:22)
[2018-03-31] MEDS: DOCUSATE 100 MG CAPSULE PO SCH (08:22)
[2018-03-31] MEDS: PANTOPROZOLE 40MG TABLET PO SCH ×2 (08:22→16:22)
[2018-03-31] MEDS: SUCRALFATE 1 GM/10 ML UDC PO SCH ×4 (08:22→21:54)
[2018-03-31] MEDS: MULTIVITAMIN 1 TABLET PO SCH (08:22)
[2018-03-31] MEDS: SIMETHICONE 125 MG CHEW TAB PO SCH ×4 (08:22→21:55)
[2018-03-31] MEDS: FUROSEMIDE 20 MG/2 ML IV SCH ×2 (08:23→21:55)
[2018-03-31] MEDS: ALLOPURINOL 100 MG TABLET PO SCH ×2 (08:23→21:55)
[2018-03-31 08:28] VITALS: BP 104/68
[2018-03-31] MEDS ORDERED: MAGNESIUM SULFATE PMX 2GM/50ML 50 ML IV ONE (09:30)
[2018-03-31 13:16] VITALS: BP 116/67
[2018-03-31 20:00] VITALS: BP 104/61
[2018-03-31] MEDS: SENNA/DOCUSATE TABLET PO SCH (21:55)
[2018-03-31] MEDS: ATORVASTATIN 40 MG TABLET PO SCH (21:55)
[2018-04-01 00:58] VITALS: BP 104/59
[2018-04-01] MEDS: DIPHENHYDRAMINE/ZINC CRM 2%, 30GM TP PRN (01:51)
[2018-04-01] MEDS: BISACODYL 10 MG SUPP PR SCH (07:35)
[2018-04-01] MEDS: POLYETHYLENE GLYCOL 17 GM PACKET NG SCH (07:35)
[2018-04-01] MEDS: SUCRALFATE 1 GM/10 ML UDC PO SCH ×2 (07:44→10:48)
[2018-04-01] MEDS: SIMETHICONE 125 MG CHEW TAB PO SCH ×2 (07:45→10:48)
[2018-04-01] MEDS: MULTIVITAMIN 1 TABLET PO SCH (07:45)
[2018-04-01] MEDS: POTASSIUM CHLORIDE 20 MEQ TAB.ER.PRT PO SCH (07:45)
[2018-04-01] MEDS: FUROSEMIDE 20 MG/2 ML IV SCH (07:45)
[2018-04-01] MEDS: PANTOPROZOLE 40MG TABLET PO SCH (07:45)
[2018-04-01] MEDS: ALLOPURINOL 100 MG TABLET PO SCH (07:45)
[2018-04-01] MEDS: DOCUSATE 100 MG CAPSULE PO SCH (07:45)
[2018-04-01 08:06] VITALS: BP 114/74
[2018-04-01] MEDS ORDERED: MAGNESIUM SULFATE PMX 2GM/50ML 50 ML IV ONE ×2 (09:00→12:00)
[2018-04-01 12:53] VITALS: BP 103/61
[2018-04-01] MEDS ORDERED: PANT40TA5 PO (13:53)
[2018-04-01] MEDS ORDERED: POTA20TA6 PO (13:53)
[2018-04-01] MEDS ORDERED: SUCR1ORA5 PO (13:53)
[2018-04-01] MEDS ORDERED: POTASSIUM CHLORIDE 20 MEQ PACKET PO SCH (17:00)
== END 2018-04-01 17:20 | disposition home or self-care (01) | DRG 377 ==
LOC: ED 07:18 → EDIP 08:44 → CCU 10:02 → 5SO 03-27 13:20
PROVIDERS: ADMIT Hospitalist; ATTEND Family Medicine
PROC: 30233N1 Transfusion of Nonautologous Red Blood Cells into Peripheral Vein, Percutaneous Approach (ICD-10-PCS; 2018-03-23)
PROC: 3E0G8GC Introduction of Other Therapeutic Substance into Upper GI, Via Natural or Artificial Opening Endoscopic (ICD-10-PCS; 2018-03-24)
PROC: 0W3P8ZZ Control Bleeding in Gastrointestinal Tract, Via Natural or Artificial Opening Endoscopic (ICD-10-PCS; principal; 2018-03-24 09:00)
DX: K26.4 Chronic or unspecified duodenal ulcer with hemorrhage (principal); R57.8 Other shock; I50.23 Acute on chronic systolic (congestive) heart failure; I13.0 Hypertensive heart and chronic kidney disease with heart failure and stage 1 through stage 4 chronic kidney disease, or unspecified chronic kidney disease; D62 Acute posthemorrhagic anemia; D68.59 Other primary thrombophilia; I25.10 Atherosclerotic heart disease of native coronary artery without angina pectoris; I48.2 Chronic atrial fibrillation; I25.5 Ischemic cardiomyopathy; I08.1 Rheumatic disorders of both mitral and tricuspid valves; E78.5 Hyperlipidemia, unspecified; E86.1 Hypovolemia; E03.9 Hypothyroidism, unspecified; Z86.73 Personal history of transient ischemic attack (TIA), and cerebral infarction without residual deficits; K21.0 Gastro-esophageal reflux disease with esophagitis; K25.9 Gastric ulcer, unspecified as acute or chronic, without hemorrhage or perforation; K59.00 Constipation, unspecified; N18.3 Chronic kidney disease, stage 3 (moderate); T45.515A Adverse effect of anticoagulants, initial encounter; Z79.01 Long term (current) use of anticoagulants; Z95.0 Presence of cardiac pacemaker; Z95.810 Presence of automatic (implantable) cardiac defibrillator; Z95.5 Presence of coronary angioplasty implant and graft; Z96.641 Presence of right artificial hip joint; Z88.6 Allergy status to analgesic agent; Z88.8 Allergy status to other drugs, medicaments and biological substances
CPT/HCPCS: 36415; 36430; 71045; 80048; 80053; 81003; 83735; 84100; 85014; 85018; 85025; 85610; 85730; 86850; 86900; 86923; 87081; 93005; 96374; 99291; J2405; J2704; C9113; J1940; J3475; J7030; J7040; J7050; P9016

== ENCOUNTER 2018-04-05 17:41 | Inpatient (IN) | payer MEDICARE, BC ==
[~2018-04-05] VITALS: Ht 182.9 cm; Wt 106.5 kg
[~2018-04-05 17:41] MED LIST changes: -LOSA25TA5 PO; +LOSA25TA6 PO; -LOSA50TA6 PO; +LOSA50TA7 PO; +POTA20TA6 PO; +SUCR1ORA5 PO
[2018-04-05] MEDS ORDERED: SODIUM CHLORIDE FLUSH 10ML SYR IVF ONE (19:00)
[2018-04-05] MEDS ORDERED: ONDANSETRON ODT 4 MG ONE (19:51)
[2018-04-05] MEDS ORDERED: MORPHINE SULFATE 4 MG/ML, 1ML ONE (19:52)
[2018-04-05 19:59] LABS: ALANINE AMINOTRANSFERASE 30 U/L (12-78); ALBUMIN 2.3 g/dL (3.4-5.0); ANION GAP 8 mmol/L (5-15); CHLORIDE 97 mmol/L (98-107)
[2018-04-05] MEDS ORDERED: ONDANSETRON ODT 4 MG PO ONE (20:00)
[2018-04-05] MEDS ORDERED: MORPHINE SULFATE 4 MG/ML, 1ML IVPush PRN (20:00)
[2018-04-05 20:01] LABS: ALKALINE PHOSPHATASE 325 U/L (45-117); BASOPHILS # (AUTO) 0.03 x10^3/uL (0-0.1); BASOPHILS % (AUTO) 0 % (0-1); BILIRUBIN,TOTAL 1.8 mg/dL (0.2-1.0); CREATININE 1.01 mg/dL (0.7-1.3); EOSINOPHILS # (AUTO) 0.08 x10^3/uL (0-0.4); EOSINOPHILS % (AUTO) 1 % (1-7); LYMPHOCYTES # (AUTO) 0.97 x10^3/uL (1-3.4); LYMPHOCYTES % (AUTO) 12 % (22-44); MD NO; MEAN CORPUSCULAR HEMOGLOBIN 30.8 pg (27.5-34.5); MEAN CORPUSCULAR HGB CONC 33.2 g/dL (33.2-36.2); MEAN CORPUSCULAR VOLUME 92.9 fL (81-97); MEAN PLATELET VOLUME 7.5 fL (7.4-10.4); MONOCYTES # (AUTO) 0.96 x10^3/uL (0.2-0.8); MONOCYTES % (AUTO) 12 % (2-9); NEUTROPHILS # (AUTO) 5.89 x10^3/uL (1.8-6.8); NEUTROPHILS % (AUTO) 74 % (42-75); PLATELET COUNT 309 x10^3/uL (130-400); TOTAL PROTEIN 5.4 g/dL (6.4-8.2)
[2018-04-05 21:27] LABS: MICROSCOPIC NOT IND
[2018-04-05 21:35] LABS: CULTURE INDICATED? NO
[2018-04-05] MEDS ORDERED: OMNIPAQUE 350 MG/ML, 100ML BOTTLE ONE (21:46)
[2018-04-05] MEDS ORDERED: SODIUM CHLORIDE FLUSH 10ML SYR IVF PRN (22:30)
[2018-04-05] MEDS ORDERED: CETIRIZINE 10 MG TABLET PO PRN (22:30)
[2018-04-05] MEDS ORDERED: VANCOMYCIN PER PHARMACY MC PRN (22:30)
[2018-04-05] MEDS ORDERED: ACETAMINOPHEN 325 MG TABLET PO PRN (22:30)
[2018-04-05] MEDS ORDERED: ONDANSETRON 2MG/ML, 2ML IVPush PRN (22:30)
[2018-04-05] MEDS ORDERED: BISACODYL 10 MG SUPP PR PRN (22:30)
[2018-04-05 23:00] VITALS: BP 112/65
[2018-04-05] MEDS ORDERED: PHARMACOKINETIC MONITORING MC PRN (23:00)
[2018-04-05] MEDS ORDERED: PHARMACOKINETIC CONSULTATION MC ONE (23:00)
[2018-04-05] MEDS: ALLOPURINOL 100 MG TABLET PO SCH (23:56)
[2018-04-05] MEDS: ATORVASTATIN 40 MG TABLET PO SCH (23:56)
[2018-04-05] MEDS: AMPICILLIN/SULBACTAM 3 GM in SODIUM CHLORIDE 0.9% 100 ML IV SCH (23:56)
[2018-04-05] MEDS: TEMAZEPAM 15 MG CAPSULE PO PRN (23:56)
[2018-04-05] MEDS: SODIUM CHLORIDE FLUSH 10ML SYR IVF SCH (23:56)
[2018-04-05] MEDS: POTASSIUM CHLORIDE 10 MEQ TABLET.ER PO SCH (23:56)
[2018-04-05] MEDS: PANTOPROZOLE 40MG TABLET PO SCH (23:57)
[2018-04-05] MEDS: HEPARIN 5,000 UNITS/ML, 1ML SQ SCH (23:57)
[2018-04-05] MEDS: CARVEDILOL 3.125 MG TABLET PO SCH (23:57)
[2018-04-06] MEDS: VANCOMYCIN 2,000 MG in SODIUM CHLORIDE 0.9% 500 ML IV SCH (00:41)
[2018-04-06 02:52] VITALS: BP 106/59
[2018-04-06 05:25] LABS: BASOPHILS # (AUTO) 0.05 x10^3/uL (0-0.1); BASOPHILS % (AUTO) 1 % (0-1); EOSINOPHILS # (AUTO) 0.14 x10^3/uL (0-0.4); EOSINOPHILS % (AUTO) 2 % (1-7); LYMPHOCYTES # (AUTO) 1.13 x10^3/uL (1-3.4); LYMPHOCYTES % (AUTO) 19 % (22-44); MD NO; MEAN CORPUSCULAR HGB CONC 32.4 g/dL (33.2-36.2); MEAN CORPUSCULAR VOLUME 92.6 fL (81-97); MEAN PLATELET VOLUME 7.6 fL (7.4-10.4); MONOCYTES # (AUTO) 0.83 x10^3/uL (0.2-0.8); MONOCYTES % (AUTO) 14 % (2-9); NEUTROPHILS # (AUTO) 3.78 x10^3/uL (1.8-6.8); NEUTROPHILS % (AUTO) 64 % (42-75); PLATELET COUNT 282 x10^3/uL (130-400); RED BLOOD COUNT 2.76 x10^6/uL (4.38-5.82); RED CELL DISTRIBUTION WIDTH 18.5 % (9.4-14.8)
[2018-04-06 05:30] LABS: ALANINE AMINOTRANSFERASE 28 U/L (12-78); ALBUMIN 2.1 g/dL (3.4-5.0); ANION GAP 6 mmol/L (5-15); CALCIUM 7.9 mg/dL (8.5-10.1); CHLORIDE 100 mmol/L (98-107); CREATININE 0.95 mg/dL (0.7-1.3)
[2018-04-06 05:32] LABS: ALKALINE PHOSPHATASE 302 U/L (45-117); BILIRUBIN,TOTAL 1.7 mg/dL (0.2-1.0); TOTAL PROTEIN 5.1 g/dL (6.4-8.2)
[2018-04-06] MEDS: AMPICILLIN/SULBACTAM 3 GM in SODIUM CHLORIDE 0.9% 100 ML IV SCH ×3 (06:19→18:10)
[2018-04-06 07:10] VITALS: BP 93/57
[2018-04-06] MEDS: POTASSIUM CHLORIDE 10 MEQ TABLET.ER PO SCH ×2 (08:10→18:10)
[2018-04-06] MEDS: PANTOPROZOLE 40MG TABLET PO SCH ×2 (08:10→18:10)
[2018-04-06] MEDS: CARVEDILOL 3.125 MG TABLET PO SCH ×3 (09:00→21:10)
[2018-04-06] MEDS: LOSARTAN 25MG TABLET PO SCH ×2 (09:00→09:53)
[2018-04-06] MEDS: MAGNESIUM GLUCONATE 27 MG HOMEMEDPO SCH (09:00)
[2018-04-06] MEDS: [UNRECOGNIZED DRUG - OTHER] TP SCH (09:00)
[2018-04-06] MEDS: FUROSEMIDE 40 MG TABLET PO SCH ×2 (09:00→09:54)
[2018-04-06] MEDS: SENNA/DOCUSATE TABLET PO SCH (09:53)
[2018-04-06] MEDS: ALLOPURINOL 100 MG TABLET PO SCH ×2 (09:53→21:40)
[2018-04-06] MEDS: LEVOTHYROXINE 75 MCG TABLET PO SCH (09:54)
[2018-04-06] MEDS: MULTIVITAMIN 1 TABLET PO SCH (09:54)
[2018-04-06] MEDS: SODIUM CHLORIDE FLUSH 10ML SYR IVF SCH ×2 (09:54→21:00)
[2018-04-06] MEDS: HEPARIN 5,000 UNITS/ML, 1ML SQ SCH ×2 (09:55→18:10)
[2018-04-06 13:15] VITALS: BP 92/58
[2018-04-06 19:33] VITALS: BP 101/65
[2018-04-06 21:08] VITALS: BP 96/59
[2018-04-06] MEDS ORDERED: DIPHENHYDRAMINE/ZINC CRM 2%, 30GM TP PRN (21:30)
[2018-04-06] MEDS: TEMAZEPAM 15 MG CAPSULE PO PRN (21:39)
[2018-04-06] MEDS: ATORVASTATIN 40 MG TABLET PO SCH (21:39)
[2018-04-06] MEDS: FUROSEMIDE 20 MG/2 ML IV SCH (21:39)
[2018-04-06] MEDS: DIPHENHYDRAMINE/ZINC CRM 2%, 30GM TP PRN (21:40)
[2018-04-07] MEDS: AMPICILLIN/SULBACTAM 3 GM in SODIUM CHLORIDE 0.9% 100 ML IV SCH ×3 (00:31→08:21)
[2018-04-07] MEDS: VANCOMYCIN 2,000 MG in SODIUM CHLORIDE 0.9% 500 ML IV SCH ×2 (01:29→06:07)
[2018-04-07] MEDS: HEPARIN 5,000 UNITS/ML, 1ML SQ SCH ×3 (01:29→17:18)
[2018-04-07 03:26] VITALS: BP 115/67
[2018-04-07] MEDS: DIPHENHYDRAMINE/ZINC CRM 2%, 30GM TP PRN (04:20)
[2018-04-07 05:42] LABS: BASOPHILS # (AUTO) 0.06 x10^3/uL (0-0.1); BASOPHILS % (AUTO) 1 % (0-1); EOSINOPHILS # (AUTO) 0.17 x10^3/uL (0-0.4); EOSINOPHILS % (AUTO) 3 % (1-7); LYMPHOCYTES # (AUTO) 1.07 x10^3/uL (1-3.4); LYMPHOCYTES % (AUTO) 16 % (22-44); MD NO; MEAN CORPUSCULAR HEMOGLOBIN 30.8 pg (27.5-34.5); MEAN CORPUSCULAR HGB CONC 32.9 g/dL (33.2-36.2); MEAN CORPUSCULAR VOLUME 93.6 fL (81-97); MEAN PLATELET VOLUME 7.8 fL (7.4-10.4); MONOCYTES # (AUTO) 0.72 x10^3/uL (0.2-0.8); MONOCYTES % (AUTO) 11 % (2-9); NEUTROPHILS # (AUTO) 4.53 x10^3/uL (1.8-6.8); NEUTROPHILS % (AUTO) 69 % (42-75); PLATELET COUNT 269 x10^3/uL (130-400); RED BLOOD COUNT 2.95 x10^6/uL (4.38-5.82); RED CELL DISTRIBUTION WIDTH 18.3 % (9.4-14.8)
[2018-04-07 05:50] LABS: ALBUMIN 2.1 g/dL (3.4-5.0); ANION GAP 9 mmol/L (5-15); CALCIUM 7.9 mg/dL (8.5-10.1); CHLORIDE 101 mmol/L (98-107)
[2018-04-07 05:54] LABS: ALANINE AMINOTRANSFERASE 26 U/L (12-78); ALKALINE PHOSPHATASE 315 U/L (45-117); BILIRUBIN,TOTAL 1.3 mg/dL (0.2-1.0); CREATININE 1.07 mg/dL (0.7-1.3); TOTAL PROTEIN 5.1 g/dL (6.4-8.2)
[2018-04-07 07:41] VITALS: BP 101/64
[2018-04-07] MEDS: POLYETHYLENE GLYCOL 17 GM PACKET PO PRN (08:45)
[2018-04-07] MEDS: POTASSIUM CHLORIDE 10 MEQ TABLET.ER PO SCH ×2 (08:46→17:18)
[2018-04-07] MEDS: ALLOPURINOL 100 MG TABLET PO SCH ×2 (08:46→20:34)
[2018-04-07] MEDS: FUROSEMIDE 20 MG/2 ML IV SCH ×2 (08:46→20:32)
[2018-04-07] MEDS: MULTIVITAMIN 1 TABLET PO SCH (08:46)
[2018-04-07] MEDS: CARVEDILOL 3.125 MG TABLET PO SCH ×2 (08:46→20:34)
[2018-04-07] MEDS: SENNA/DOCUSATE TABLET PO SCH (08:46)
[2018-04-07] MEDS: LEVOTHYROXINE 75 MCG TABLET PO SCH (08:46)
[2018-04-07] MEDS: LOSARTAN 25MG TABLET PO SCH (08:47)
[2018-04-07] MEDS: PANTOPROZOLE 40MG TABLET PO SCH ×2 (08:47→17:18)
[2018-04-07] MEDS: MAGNESIUM GLUCONATE 27 MG HOMEMEDPO SCH (08:47)
[2018-04-07] MEDS: [UNRECOGNIZED DRUG - OTHER] TP SCH (08:47)
[2018-04-07] MEDS: SODIUM CHLORIDE FLUSH 10ML SYR IVF SCH ×2 (08:47→20:47)
[2018-04-07] MEDS ORDERED: morphine SULFATE 10 MG/ML, 1ML IVPush PRN (12:00)
[2018-04-07 12:02] VITALS: BP 93/55
[2018-04-07 13:25] VITALS: BP 98/58
[2018-04-07] MEDS ORDERED: ACETAMINOPHEN 325 MG TABLET PO PRN (13:30)
[2018-04-07] MEDS: DOXYCYCLINE 100MG TABLET PO SCH ×2 (14:01→20:33)
[2018-04-07] MEDS: AMOXICILLIN/CLAV 875-125MG TABLET PO SCH ×2 (14:01→20:33)
[2018-04-07] MEDS: KETOROLAC 30 MG/1 ML IVPush SCH ×2 (14:01→20:35)
[2018-04-07 19:33] VITALS: BP 92/50
[2018-04-07] MEDS: TEMAZEPAM 15 MG CAPSULE PO PRN (20:34)
[2018-04-07] MEDS: ATORVASTATIN 40 MG TABLET PO SCH (20:34)
[2018-04-08] MEDS: KETOROLAC 30 MG/1 ML IVPush SCH ×4 (01:38→21:34)
[2018-04-08] MEDS: HEPARIN 5,000 UNITS/ML, 1ML SQ SCH ×3 (01:38→17:21)
[2018-04-08 02:25] VITALS: BP 110/68
[2018-04-08 09:04] VITALS: BP 101/51
[2018-04-08] MEDS: CARVEDILOL 3.125 MG TABLET PO SCH ×2 (09:07→21:00)
[2018-04-08] MEDS: LEVOTHYROXINE 75 MCG TABLET PO SCH (09:07)
[2018-04-08] MEDS: AMOXICILLIN/CLAV 875-125MG TABLET PO SCH ×2 (09:07→21:35)
[2018-04-08] MEDS: LOSARTAN 25MG TABLET PO SCH (09:07)
[2018-04-08] MEDS: MULTIVITAMIN 1 TABLET PO SCH (09:07)
[2018-04-08] MEDS: DOXYCYCLINE 100MG TABLET PO SCH ×2 (09:07→21:36)
[2018-04-08] MEDS: ALLOPURINOL 100 MG TABLET PO SCH ×2 (09:07→21:36)
[2018-04-08] MEDS: SENNA/DOCUSATE TABLET PO SCH (09:07)
[2018-04-08] MEDS: MAGNESIUM GLUCONATE 27 MG HOMEMEDPO SCH (09:08)
[2018-04-08] MEDS: PANTOPROZOLE 40MG TABLET PO SCH ×2 (09:08→17:22)
[2018-04-08] MEDS: POTASSIUM CHLORIDE 10 MEQ TABLET.ER PO SCH ×2 (09:08→17:21)
[2018-04-08] MEDS: SODIUM CHLORIDE FLUSH 10ML SYR IVF SCH ×2 (09:09→21:35)
[2018-04-08] MEDS: FUROSEMIDE 20 MG/2 ML IV SCH ×2 (09:20→21:34)
[2018-04-08] MEDS: [UNRECOGNIZED DRUG - OTHER] TP SCH (09:24)
[2018-04-08 14:22] VITALS: BP 91/55
[2018-04-08 17:01] VITALS: BP 91/49
[2018-04-08 20:57] VITALS: BP 106/58
[2018-04-08] MEDS: TEMAZEPAM 15 MG CAPSULE PO PRN (21:36)
[2018-04-08] MEDS: ATORVASTATIN 40 MG TABLET PO SCH (21:36)
[2018-04-08] MEDS: POLYETHYLENE GLYCOL 17 GM PACKET PO PRN (21:36)
[2018-04-09] MEDS: HEPARIN 5,000 UNITS/ML, 1ML SQ SCH (01:26)
[2018-04-09 01:46] VITALS: BP 99/63
[2018-04-09] MEDS: KETOROLAC 30 MG/1 ML IVPush SCH (03:34)
[2018-04-09] MEDS ORDERED: MAGNESIUM SULFATE PMX 2GM/50ML 50 ML IV ONE (04:00)
[2018-04-09 06:21] LABS: BASOPHILS # (AUTO) 0.04 x10^3/uL (0-0.1); BASOPHILS % (AUTO) 1 % (0-1); EOSINOPHILS # (AUTO) 0.36 x10^3/uL (0-0.4); EOSINOPHILS % (AUTO) 6 % (1-7); LYMPHOCYTES % (AUTO) 19 % (22-44); MD NO; MEAN CORPUSCULAR HEMOGLOBIN 30.9 pg (27.5-34.5); MEAN CORPUSCULAR HGB CONC 33.8 g/dL (33.2-36.2); MEAN CORPUSCULAR VOLUME 91.6 fL (81-97); MEAN PLATELET VOLUME 7.5 fL (7.4-10.4); MONOCYTES # (AUTO) 0.67 x10^3/uL (0.2-0.8); MONOCYTES % (AUTO) 11 % (2-9); NEUTROPHILS # (AUTO) 3.69 x10^3/uL (1.8-6.8); NEUTROPHILS % (AUTO) 63 % (42-75); PLATELET COUNT 248 x10^3/uL (130-400); RED CELL DISTRIBUTION WIDTH 17.6 % (9.4-14.8)
[2018-04-09 06:30] LABS: ALANINE AMINOTRANSFERASE 25 U/L (12-78); ALBUMIN 2.1 g/dL (3.4-5.0); ANION GAP 5 mmol/L (5-15); CALCIUM 7.8 mg/dL (8.5-10.1); CHLORIDE 103 mmol/L (98-107); CREATININE 1.43 mg/dL (0.7-1.3); GAMMA GLUTAMYL TRANSPEPTIDASE 160 U/L (15-85)
[2018-04-09 06:32] LABS: ALKALINE PHOSPHATASE 325 U/L (45-117); BILIRUBIN,TOTAL 1.2 mg/dL (0.2-1.0); TOTAL PROTEIN 5.2 g/dL (6.4-8.2)
[2018-04-09] MEDS: SODIUM CHLORIDE 0.9% 250 ML IV SCH ×2 (07:00→09:00)
[2018-04-09] MEDS ORDERED: VANCOMYCIN PER PHARMACY MC PRN (07:30)
[2018-04-09] MEDS ORDERED: PHARMACY MAY ADJ FOR RENAL FX MC PRN (07:30)
[2018-04-09] MEDS ORDERED: PHARMACOKINETIC MONITORING MC PRN (07:30)
[2018-04-09 07:31] VITALS: BP 108/65
[2018-04-09] MEDS: LOSARTAN 25MG TABLET PO SCH (07:44)
[2018-04-09] MEDS: AMPICILLIN/SULBACTAM 3 GM in SODIUM CHLORIDE 0.9% 100 ML IV SCH ×2 (08:18→16:48)
[2018-04-09] MEDS: FUROSEMIDE 20 MG/2 ML IV SCH ×2 (08:18→21:16)
[2018-04-09 08:23] VITALS: BP 108/63
[2018-04-09] MEDS: LEVOTHYROXINE 75 MCG TABLET PO SCH (08:27)
[2018-04-09] MEDS: CARVEDILOL 3.125 MG TABLET PO SCH ×2 (08:27→21:13)
[2018-04-09] MEDS: ALLOPURINOL 100 MG TABLET PO SCH ×2 (08:27→21:13)
[2018-04-09] MEDS: PANTOPROZOLE 40MG TABLET PO SCH ×2 (08:27→16:47)
[2018-04-09] MEDS: POTASSIUM CHLORIDE 10 MEQ TABLET.ER PO SCH ×2 (08:27→16:47)
[2018-04-09] MEDS: MAGNESIUM GLUCONATE 27 MG HOMEMEDPO SCH (08:28)
[2018-04-09] MEDS: [UNRECOGNIZED DRUG - OTHER] TP SCH (08:28)
[2018-04-09] MEDS: MULTIVITAMIN 1 TABLET PO SCH (08:28)
[2018-04-09] MEDS: SENNA/DOCUSATE TABLET PO SCH (08:28)
[2018-04-09] MEDS: SODIUM CHLORIDE FLUSH 10ML SYR IVF SCH ×2 (08:28→21:16)
[2018-04-09] MEDS: VANCOMYCIN 2,000 MG in SODIUM CHLORIDE 0.9% 500 ML IV SCH (09:19)
[2018-04-09 13:32] VITALS: BP 109/67
[2018-04-09 20:19] VITALS: BP 102/59
[2018-04-09 21:15] VITALS: BP 102/61
[2018-04-09] MEDS: ATORVASTATIN 40 MG TABLET PO SCH (21:17)
[2018-04-09] MEDS: TEMAZEPAM 15 MG CAPSULE PO PRN (21:23)
[2018-04-10] MEDS: AMPICILLIN/SULBACTAM 3 GM in SODIUM CHLORIDE 0.9% 100 ML IV SCH ×3 (00:01→16:37)
[2018-04-10 01:11] VITALS: BP 99/62
[2018-04-10 06:18] LABS: BASOPHILS # (AUTO) 0.03 x10^3/uL (0-0.1); BASOPHILS % (AUTO) 1 % (0-1); EOSINOPHILS # (AUTO) 0.38 x10^3/uL (0-0.4); EOSINOPHILS % (AUTO) 6 % (1-7); LYMPHOCYTES # (AUTO) 1.02 x10^3/uL (1-3.4); LYMPHOCYTES % (AUTO) 17 % (22-44); MD NO; MEAN CORPUSCULAR HEMOGLOBIN 30.1 pg (27.5-34.5); MEAN CORPUSCULAR HGB CONC 32.9 g/dL (33.2-36.2); MEAN CORPUSCULAR VOLUME 91.7 fL (81-97); MEAN PLATELET VOLUME 7.4 fL (7.4-10.4); MONOCYTES # (AUTO) 0.58 x10^3/uL (0.2-0.8); MONOCYTES % (AUTO) 10 % (2-9); NEUTROPHILS # (AUTO) 3.89 x10^3/uL (1.8-6.8); NEUTROPHILS % (AUTO) 66 % (42-75); PLATELET COUNT 238 x10^3/uL (130-400); RED BLOOD COUNT 2.91 x10^6/uL (4.38-5.82); RED CELL DISTRIBUTION WIDTH 18.6 % (9.4-14.8)
[2018-04-10 06:31] LABS: CHLORIDE 102 mmol/L (98-107)
[2018-04-10 06:40] LABS: ALANINE AMINOTRANSFERASE 23 U/L (12-78); ALBUMIN 2.1 g/dL (3.4-5.0); ALKALINE PHOSPHATASE 321 U/L (45-117); ANION GAP 11 mmol/L (5-15); BILIRUBIN,TOTAL 1.2 mg/dL (0.2-1.0); CALCIUM 8.1 mg/dL (8.5-10.1); CREATININE 1.33 mg/dL (0.7-1.3); TOTAL PROTEIN 5.2 g/dL (6.4-8.2)
[2018-04-10 07:24] VITALS: BP 122/67
[2018-04-10] MEDS: MAGNESIUM GLUCONATE 27 MG HOMEMEDPO SCH (08:27)
[2018-04-10] MEDS: MULTIVITAMIN 1 TABLET PO SCH (08:47)
[2018-04-10] MEDS: SENNA/DOCUSATE TABLET PO SCH (08:47)
[2018-04-10] MEDS: ALLOPURINOL 100 MG TABLET PO SCH ×2 (08:48→20:35)
[2018-04-10] MEDS: LEVOTHYROXINE 75 MCG TABLET PO SCH (08:48)
[2018-04-10] MEDS: POTASSIUM CHLORIDE 10 MEQ TABLET.ER PO SCH ×2 (08:48→16:36)
[2018-04-10] MEDS: CARVEDILOL 3.125 MG TABLET PO SCH ×2 (08:48→20:36)
[2018-04-10] MEDS: PANTOPROZOLE 40MG TABLET PO SCH ×2 (08:48→16:36)
[2018-04-10] MEDS: FUROSEMIDE 20 MG/2 ML IV SCH ×2 (08:48→20:36)
[2018-04-10] MEDS: LOSARTAN 25MG TABLET PO SCH (08:48)
[2018-04-10] MEDS: SODIUM CHLORIDE FLUSH 10ML SYR IVF SCH ×2 (08:51→20:36)
[2018-04-10] MEDS: [UNRECOGNIZED DRUG - OTHER] TP SCH (08:56)
[2018-04-10] MEDS: VANCOMYCIN 2,000 MG in SODIUM CHLORIDE 0.9% 500 ML IV SCH (09:53)
[2018-04-10 12:58] VITALS: BP 107/65
[2018-04-10 18:40] LABS: TROPONIN I 0.077 ng/mL (0.000-0.045)
[2018-04-10] MEDS ORDERED: MORPHINE SULFATE 4 MG/ML, 1ML IVPush PRN (19:30)
[2018-04-10] MEDS: ATORVASTATIN 40 MG TABLET PO SCH (20:35)
[2018-04-10] MEDS: TEMAZEPAM 15 MG CAPSULE PO PRN (20:36)
[2018-04-10 20:50] VITALS: BP 107/64
[2018-04-11] MEDS: AMPICILLIN/SULBACTAM 3 GM in SODIUM CHLORIDE 0.9% 100 ML IV SCH ×3 (00:06→16:45)
[2018-04-11 00:36] LABS: TROPONIN I 0.081 ng/mL (0.000-0.045)
[2018-04-11 01:43] VITALS: BP 105/63
[2018-04-11 06:06] LABS: BASOPHILS # (AUTO) 0.03 x10^3/uL (0-0.1); BASOPHILS % (AUTO) 1 % (0-1); EOSINOPHILS # (AUTO) 0.34 x10^3/uL (0-0.4); EOSINOPHILS % (AUTO) 6 % (1-7); LYMPHOCYTES # (AUTO) 1.23 x10^3/uL (1-3.4); LYMPHOCYTES % (AUTO) 23 % (22-44); MD NO; MEAN CORPUSCULAR HEMOGLOBIN 30.4 pg (27.5-34.5); MEAN CORPUSCULAR HGB CONC 32.8 g/dL (33.2-36.2); MEAN CORPUSCULAR VOLUME 92.7 fL (81-97); MEAN PLATELET VOLUME 7.7 fL (7.4-10.4); MONOCYTES # (AUTO) 0.61 x10^3/uL (0.2-0.8); MONOCYTES % (AUTO) 11 % (2-9); NEUTROPHILS # (AUTO) 3.16 x10^3/uL (1.8-6.8); NEUTROPHILS % (AUTO) 59 % (42-75); PLATELET COUNT 223 x10^3/uL (130-400); RED BLOOD COUNT 2.91 x10^6/uL (4.38-5.82); RED CELL DISTRIBUTION WIDTH 18.2 % (9.4-14.8)
[2018-04-11 06:15] LABS: ALBUMIN 2.2 g/dL (3.4-5.0); ANION GAP 10 mmol/L (5-15); CALCIUM 8.2 mg/dL (8.5-10.1); CHLORIDE 103 mmol/L (98-107); CREATININE 1.26 mg/dL (0.7-1.3)
[2018-04-11 06:58] VITALS: BP 113/61
[2018-04-11 07:48] LABS: TROPONIN I 0.087 ng/mL (0.000-0.045)
[2018-04-11] MEDS: FUROSEMIDE 20 MG/2 ML IV SCH ×2 (09:47→21:02)
[2018-04-11] MEDS: ALLOPURINOL 100 MG TABLET PO SCH ×2 (09:48→21:04)
[2018-04-11] MEDS: LEVOTHYROXINE 75 MCG TABLET PO SCH (09:48)
[2018-04-11] MEDS: CARVEDILOL 3.125 MG TABLET PO SCH ×2 (09:48→21:00)
[2018-04-11] MEDS: PANTOPROZOLE 40MG TABLET PO SCH ×2 (09:48→16:46)
[2018-04-11] MEDS: MULTIVITAMIN 1 TABLET PO SCH (09:48)
[2018-04-11] MEDS: SENNA/DOCUSATE TABLET PO SCH (09:48)
[2018-04-11] MEDS: POTASSIUM CHLORIDE 10 MEQ TABLET.ER PO SCH ×2 (09:49→16:46)
[2018-04-11] MEDS: MAGNESIUM GLUCONATE 27 MG HOMEMEDPO SCH (10:02)
[2018-04-11] MEDS: [UNRECOGNIZED DRUG - OTHER] TP SCH (10:02)
[2018-04-11] MEDS: SODIUM CHLORIDE FLUSH 10ML SYR IVF SCH ×2 (10:10→21:04)
[2018-04-11] MEDS: VANCOMYCIN 2,000 MG in SODIUM CHLORIDE 0.9% 500 ML IV SCH (11:14)
[2018-04-11 14:58] VITALS: BP 99/60
[2018-04-11 20:55] VITALS: BP 111/66
[2018-04-11] MEDS: TEMAZEPAM 15 MG CAPSULE PO PRN (21:04)
[2018-04-11] MEDS: ATORVASTATIN 40 MG TABLET PO SCH (21:04)
[2018-04-12] MEDS: AMPICILLIN/SULBACTAM 3 GM in SODIUM CHLORIDE 0.9% 100 ML IV SCH ×2 (00:29→09:10)
[2018-04-12 00:39] VITALS: BP 117/67
[2018-04-12 05:41] LABS: CHLORIDE 103 mmol/L (98-107)
[2018-04-12 05:46] LABS: ALBUMIN 2.2 g/dL (3.4-5.0); ANION GAP 9 mmol/L (5-15); CALCIUM 8.3 mg/dL (8.5-10.1); CREATININE 1.31 mg/dL (0.7-1.3)
[2018-04-12 07:26] VITALS: BP 118/61
[2018-04-12] MEDS ORDERED: SUCR1TAB PO (08:04)
[2018-04-12] MEDS: SODIUM CHLORIDE FLUSH 10ML SYR IVF SCH ×2 (09:00→21:35)
[2018-04-12] MEDS: CARVEDILOL 3.125 MG TABLET PO SCH ×3 (09:09→21:35)
[2018-04-12] MEDS: FUROSEMIDE 20 MG/2 ML IV SCH ×2 (09:09→21:35)
[2018-04-12] MEDS: ALLOPURINOL 100 MG TABLET PO SCH ×2 (09:09→21:35)
[2018-04-12] MEDS: PANTOPROZOLE 40MG TABLET PO SCH ×2 (09:10→17:07)
[2018-04-12] MEDS: LEVOTHYROXINE 75 MCG TABLET PO SCH (09:10)
[2018-04-12] MEDS: SUCRALFATE 1 GM TABLET PO SCH ×4 (09:10→21:35)
[2018-04-12] MEDS: MULTIVITAMIN 1 TABLET PO SCH (09:10)
[2018-04-12] MEDS: POTASSIUM CHLORIDE 10 MEQ TABLET.ER PO SCH ×2 (09:10→17:07)
[2018-04-12] MEDS: MAGNESIUM GLUCONATE 27 MG HOMEMEDPO SCH (09:11)
[2018-04-12] MEDS: [UNRECOGNIZED DRUG - OTHER] TP SCH (09:11)
[2018-04-12] MEDS: SENNA/DOCUSATE TABLET PO SCH (09:50)
[2018-04-12] MEDS: VANCOMYCIN 2,000 MG in SODIUM CHLORIDE 0.9% 500 ML IV SCH (09:50)
[2018-04-12] MEDS ORDERED: PHARMACY MAY ADJ FOR RENAL FX MC PRN (13:00)
[2018-04-12 13:19] VITALS: BP 112/66
[2018-04-12] MEDS ORDERED: MAGNESIUM SULFATE 1 GM in SODIUM CHLORIDE 0.9% 50 ML IV ONE (17:00)
[2018-04-12] MEDS ORDERED: MAGNESIUM SULFATE PMX 2GM/50ML 50 ML IVPB ONE (17:00)
[2018-04-12 19:42] VITALS: BP 98/58
[2018-04-12] MEDS: AMOXICILLIN/CLAV 875-125MG TABLET PO SCH (21:35)
[2018-04-12] MEDS: ATORVASTATIN 40 MG TABLET PO SCH (21:35)
[2018-04-12] MEDS: DOXYCYCLINE 100MG TABLET PO SCH (21:35)
[2018-04-12] MEDS: TEMAZEPAM 15 MG CAPSULE PO PRN (21:45)
[2018-04-13 01:45] VITALS: BP 115/61
[2018-04-13 06:03] LABS: BASOPHILS # (AUTO) 0.02 x10^3/uL (0-0.1); BASOPHILS % (AUTO) 0 % (0-1); EOSINOPHILS % (AUTO) 6 % (1-7); LYMPHOCYTES # (AUTO) 1.22 x10^3/uL (1-3.4); LYMPHOCYTES % (AUTO) 24 % (22-44); MD NO; MEAN CORPUSCULAR HEMOGLOBIN 30.5 pg (27.5-34.5); MEAN CORPUSCULAR HGB CONC 33.4 g/dL (33.2-36.2); MEAN CORPUSCULAR VOLUME 91.4 fL (81-97); MEAN PLATELET VOLUME 7.7 fL (7.4-10.4); MONOCYTES # (AUTO) 0.65 x10^3/uL (0.2-0.8); MONOCYTES % (AUTO) 13 % (2-9); NEUTROPHILS # (AUTO) 2.84 x10^3/uL (1.8-6.8); NEUTROPHILS % (AUTO) 56 % (42-75); PLATELET COUNT 212 x10^3/uL (130-400); RED BLOOD COUNT 2.95 x10^6/uL (4.38-5.82)
[2018-04-13 06:15] LABS: ALBUMIN 2.2 g/dL (3.4-5.0); ANION GAP 9 mmol/L (5-15); CALCIUM 8.5 mg/dL (8.5-10.1); CHLORIDE 103 mmol/L (98-107)
[2018-04-13 06:17] LABS: CREATININE 1.05 mg/dL (0.7-1.3)
[2018-04-13 08:00] VITALS: BP 106/63
[2018-04-13] MEDS: PANTOPROZOLE 40MG TABLET PO SCH ×2 (08:46→16:55)
[2018-04-13] MEDS: POTASSIUM CHLORIDE 10 MEQ TABLET.ER PO SCH ×2 (08:46→16:55)
[2018-04-13] MEDS: SUCRALFATE 1 GM TABLET PO SCH ×3 (08:46→16:55)
[2018-04-13] MEDS: FUROSEMIDE 20 MG/2 ML IV SCH (08:46)
[2018-04-13] MEDS: AMOXICILLIN/CLAV 875-125MG TABLET PO SCH (08:47)
[2018-04-13] MEDS: CARVEDILOL 3.125 MG TABLET PO SCH (08:47)
[2018-04-13] MEDS: SENNA/DOCUSATE TABLET PO SCH (08:47)
[2018-04-13] MEDS: MULTIVITAMIN 1 TABLET PO SCH (08:47)
[2018-04-13] MEDS: DOXYCYCLINE 100MG TABLET PO SCH (08:48)
[2018-04-13] MEDS: [UNRECOGNIZED DRUG - OTHER] TP SCH (08:48)
[2018-04-13] MEDS: ALLOPURINOL 100 MG TABLET PO SCH (08:48)
[2018-04-13] MEDS: MAGNESIUM GLUCONATE 27 MG HOMEMEDPO SCH (08:48)
[2018-04-13] MEDS: LEVOTHYROXINE 75 MCG TABLET PO SCH (08:48)
[2018-04-13] MEDS: SODIUM CHLORIDE FLUSH 10ML SYR IVF SCH (08:48)
[2018-04-13] MEDS ORDERED: AMOX1TAB12 PO (09:37)
[2018-04-13 13:05] VITALS: BP 110/67
[2018-04-13] MEDS ORDERED: VANCOMYCIN 2,000 MG in SODIUM CHLORIDE 0.9% 500 ML IV SCH (22:00)
== END 2018-04-13 17:58 | DRG 602 ==
LOC: ED 19:43 → EDIP 22:06 → 3NE 22:45 → 4EST 04-06 12:55
PROVIDERS: ADMIT Hospitalist; ATTEND Hospitalist
PROC: 4B02XTZ Measurement of Cardiac Defibrillator, External Approach (ICD-10-PCS; principal; 2018-04-06)
DX: L03.115 Cellulitis of right lower limb (principal); S72.121A Displaced fracture of lesser trochanter of right femur, initial encounter for closed fracture; E43 Unspecified severe protein-calorie malnutrition; E87.1 Hypo-osmolality and hyponatremia; D68.69 Other thrombophilia; I47.2 Ventricular tachycardia; J98.11 Atelectasis; N17.9 Acute kidney failure, unspecified; R17 Unspecified jaundice; K92.2 Gastrointestinal hemorrhage, unspecified; Z88.8 Allergy status to other drugs, medicaments and biological substances; Z68.31 Body mass index [BMI] 31.0-31.9, adult; E03.9 Hypothyroidism, unspecified; E78.5 Hyperlipidemia, unspecified; I11.0 Hypertensive heart disease with heart failure; I25.10 Atherosclerotic heart disease of native coronary artery without angina pectoris; I25.2 Old myocardial infarction; I48.2 Chronic atrial fibrillation; I50.9 Heart failure, unspecified; K21.9 Gastro-esophageal reflux disease without esophagitis; M10.9 Gout, unspecified; Z80.0 Family history of malignant neoplasm of digestive organs; Z82.49 Family history of ischemic heart disease and other diseases of the circulatory system; Z82.5 Family history of asthma and other chronic lower respiratory diseases; Z86.73 Personal history of transient ischemic attack (TIA), and cerebral infarction without residual deficits; Z87.11 Personal history of peptic ulcer disease; Z95.0 Presence of cardiac pacemaker; Z95.5 Presence of coronary angioplasty implant and graft; Z96.641 Presence of right artificial hip joint; Z90.49 Acquired absence of other specified parts of digestive tract; X58.XXXA Exposure to other specified factors, initial encounter; Y93.89 Activity, other specified; Y92.89 Other specified places as the place of occurrence of the external cause; Y99.8 Other external cause status; D50.0 Iron deficiency anemia secondary to blood loss (chronic)
CPT/HCPCS: 36415; 71045; 80048; 80053; 80202; 81003; 82040; 82274; 82977; 83605; 83735; 83880; 84484; 85025; 87040; 93005; 93970; 96374; G0378; J0295; J1644; J1885; J3370; Q0162; Q9967; J1940; J3475; J7040; J7050

== ENCOUNTER 2018-05-07 16:35 | Emergency (ER) | payer MEDICARE, BC ==
[~2018-05-07] VITALS: Ht 182.9 cm; Wt 86.0 kg
[~2018-05-07 16:35] MED LIST changes: +AMOX1TAB12 PO; +SUCR1TAB PO
[2018-05-07] MEDS ORDERED: ONDANSETRON ODT 4 MG PO ONE (17:00)
[2018-05-07] MEDS ORDERED: HYDROmorphone 1 MG/ML, 1ML IV ONE (17:00)
[2018-05-07] MEDS ORDERED: SODIUM CHLORIDE FLUSH 10ML SYR IVF ONE (17:00)
[2018-05-07] MEDS ORDERED: ONDANSETRON ODT 4 MG ONE (17:01)
[2018-05-07] MEDS ORDERED: HYDROmorphone 2 MG/ML, 1ML ONE (17:01)
[2018-05-07 17:18] LABS: ALANINE AMINOTRANSFERASE 36 U/L (12-78); ALBUMIN 2.9 g/dL (3.4-5.0); ANION GAP 11 mmol/L (5-15); CALCIUM 8.1 mg/dL (8.5-10.1); CHLORIDE 100 mmol/L (98-107); CREATININE 0.96 mg/dL (0.7-1.3)
[2018-05-07 17:20] LABS: ALKALINE PHOSPHATASE 387 U/L (45-117); BILIRUBIN,TOTAL 0.9 mg/dL (0.2-1.0); TOTAL PROTEIN 6.5 g/dL (6.4-8.2)
[2018-05-07 17:27] LABS: BASOPHILS # (AUTO) 0.08 x10^3/uL (0-0.1); BASOPHILS % (AUTO) 1 % (0-1); EOSINOPHILS # (AUTO) 0.16 x10^3/uL (0-0.4); EOSINOPHILS % (AUTO) 2 % (1-7); LYMPHOCYTES # (AUTO) 1.14 x10^3/uL (1-3.4); LYMPHOCYTES % (AUTO) 15 % (22-44); MD MORPH REVIEW ONLY; MEAN CORPUSCULAR HEMOGLOBIN 28.9 pg (27.5-34.5); MEAN CORPUSCULAR HGB CONC 32.5 g/dL (33.2-36.2); MEAN CORPUSCULAR VOLUME 88.7 fL (81-97); MEAN PLATELET VOLUME 8.1 fL (7.4-10.4); MONOCYTES # (AUTO) 0.62 x10^3/uL (0.2-0.8); MONOCYTES % (AUTO) 8 % (2-9); NEUTROPHILS # (AUTO) 5.54 x10^3/uL (1.8-6.8); NEUTROPHILS % (AUTO) 73 % (42-75); PLATELET COUNT 215 x10^3/uL (130-400); RED BLOOD COUNT 3.63 x10^6/uL (4.38-5.82)
[2018-05-07 17:29] LABS: CRENATED 2+
[2018-05-07 17:30] LABS: OVALOCYTES 1+
[2018-05-07 17:31] LABS: POLYCHROMASIA 1+; TARGET CELLS 1+
[2018-05-07 17:33] LABS: HYPOCHROMIA 1+
[2018-05-07 17:36] LABS: <PLATELET ESTIMATE> ADEQUATE
[2018-05-07 17:37] LABS: <PLT MORPHOLOGY> NORMAL PLT MORPH
[2018-05-07 18:05] LABS: RED CELL DISTRIBUTION WIDTH 21.3 % (9.4-14.8)
[2018-05-07] MEDS ORDERED: POTA20TA14 PO (19:19)
[2018-05-07] MEDS ORDERED: TRAM50TA2 PO (19:19)
[2018-05-07] MEDS ORDERED: FERR220S13 PO (19:19)
[2018-05-07] MEDS ORDERED: ATOR40TA PO (19:19)
[2018-05-07] MEDS ORDERED: SODIUM CHLORIDE 0.9%, 500ML IVBOLUS ONE (19:30)
[2018-05-07 20:06] LABS: MICROSCOPIC NOT IND
[2018-05-07 20:09] LABS: CULTURE INDICATED? NO
[2018-05-07] MEDS ORDERED: DICYCLOMINE 20 MG TABLET ONE (20:45)
[2018-05-07] MEDS ORDERED: DICYCLOMINE 20 MG TABLET PO ONE (21:00)
[2018-05-07 22:19] VITALS: BP 111/68
== END 2018-05-07 22:21 | disposition home or self-care (01) ==
LOC: ED 16:54
DX: R10.9 Unspecified abdominal pain (principal); Z87.891 Personal history of nicotine dependence; E78.5 Hyperlipidemia, unspecified; I25.10 Atherosclerotic heart disease of native coronary artery without angina pectoris; K21.9 Gastro-esophageal reflux disease without esophagitis; Z86.73 Personal history of transient ischemic attack (TIA), and cerebral infarction without residual deficits
CPT/HCPCS: 36415; 74176; 80053; 81003; 83690; 85025; 96374; 99285; J1170; J7040; Q0162

== ENCOUNTER → 2018-08-14 | Outpatient (CLI) | payer MEDICARE, BC ==
[~2018-08-14] MED LIST changes: +ATOR20TA37 PO; -ATOR20TA9 PO; +ATOR40TA PO; +FERR220S13 PO; +LOSA25TA25 PO; -LOSA25TA6 PO; +POTA20TA14 PO
== END | disposition home or self-care (01) ==
LOC: RAD 11:42
PROVIDERS: ATTEND Family Medicine
DX: I51.7 Cardiomegaly (principal); J90 Pleural effusion, not elsewhere classified; I25.10 Atherosclerotic heart disease of native coronary artery without angina pectoris; I48.91 Unspecified atrial fibrillation; I42.9 Cardiomyopathy, unspecified; I47.2 Ventricular tachycardia; Z95.810 Presence of automatic (implantable) cardiac defibrillator
CPT/HCPCS: 71046

== ENCOUNTER 2018-10-01 08:39 | Inpatient (IN) | payer MEDICARE, BC ==
[~2018-10-01] VITALS: Ht 182.9 cm; Wt 85.9 kg
[~2018-10-01 08:39] MED LIST changes: +LOSA50TA14 PO; -LOSA50TA7 PO
[2018-10-01] MEDS ORDERED: SODIUM CHLORIDE FLUSH 10ML SYR IVF ONE (09:00)
[2018-10-01 09:12] LABS: BASOPHILS # (AUTO) 0.04 x10^3/uL (0-0.1); BASOPHILS % (AUTO) 1 % (0-1); EOSINOPHILS # (AUTO) 0.53 x10^3/uL (0-0.4); EOSINOPHILS % (AUTO) 8 % (1-7); LYMPHOCYTES # (AUTO) 1.46 x10^3/uL (1-3.4); LYMPHOCYTES % (AUTO) 21 % (22-44); MD NO; MEAN CORPUSCULAR HEMOGLOBIN 30.4 pg (27.5-34.5); MEAN CORPUSCULAR VOLUME 94.9 fL (81-97); MEAN PLATELET VOLUME 8.5 fL (7.4-10.4); MONOCYTES # (AUTO) 0.84 x10^3/uL (0.2-0.8); MONOCYTES % (AUTO) 12 % (2-9); NEUTROPHILS # (AUTO) 4.22 x10^3/uL (1.8-6.8); NEUTROPHILS % (AUTO) 60 % (42-75); PLATELET COUNT 219 x10^3/uL (130-400); RED BLOOD COUNT 4.03 x10^6/uL (4.38-5.82); RED CELL DISTRIBUTION WIDTH 19.4 % (9.4-14.8)
[2018-10-01 09:22] LABS: ALBUMIN 3.2 g/dL (3.4-5.0); ANION GAP 10 mmol/L (5-15); CALCIUM 8.5 mg/dL (8.5-10.1); CHLORIDE 99 mmol/L (98-107)
[2018-10-01 09:28] LABS: ALANINE AMINOTRANSFERASE 20 U/L (12-78); ALKALINE PHOSPHATASE 324 U/L (45-117); BILIRUBIN,TOTAL 1.5 mg/dL (0.2-1.0); CREATININE 1.02 mg/dL (0.7-1.3); TOTAL PROTEIN 6.6 g/dL (6.4-8.2); TROPONIN I 0.109 ng/mL (0.000-0.045)
[2018-10-01] MEDS ORDERED: IRON PO (09:49)
--- NOTE | 2018-10-01 09:50 | NUR ---
LATE ENTRY FOR 829, [facility] FLIGHT FROM [facility]. PT W/ AICD C/O CP THIS AM. REC'D SHOCK THIS AM FOR V-TACH, +SYNCOPAL EPISODE WITNESSED BY EMS VSS. IN ROUTE TO [facility] CARE FLIGHT RPTS HAD 3 EPISODES OF V-TACH PRECEEDED BY NEAR SYNCOPAL EPISODES. AICD SHOCKED WITH EFFECT. VSS. PT ARRIVES TO ED A&0 X 4, PLEASANT AND COOPERATIVE. VSS. PT ON ALL MONITORS AND ECG PADS PLACED. DR LUO AT BEDSIDE, PT ASSESSMENT REV. AND QUESTIONS ANSWERED.
--- NOTE | 2018-10-01 09:55 | NUR ---
LATE ENTRY FOR 909, PTS DAUGHTERJAD CALLED. PER PT AUTHORIZATION I UPDATED JAD TO EVENTS AND HER FATHERS CURRENT STABLE STATUS. QUESTIONS ANSWERED. PT WAS ABLE TO TALK WITH DAUGHTER ON THE PHONE.
[2018-10-01 09:56] LABS: INTERNATIONAL NORMALIZED RATIO 1.52 (0.93-1.1); PROTHROMBIN TIME 15.7 Seconds (9.6-11.5)
--- NOTE | 2018-10-01 09:56 | NUR ---
[facility] CLOUD AT BEDSIDE FOR PACER INTERROGATION. DR. LUO UPDATED.
--- NOTE | 2018-10-01 09:56 | NUR ---
PTS BROTHER, LEDA AT BEDSIDE.
[2018-10-01] MEDS ORDERED: DABI75CA3 PO (10:02)
[2018-10-01] MEDS ORDERED: SODIUM CHLORIDE FLUSH 10ML SYR IVF PRN (10:30)
--- NOTE | 2018-10-01 11:23 | NUR ---
DR KEBEDE AT BEDSIDE, POC DISCUSSED AND QUESTIONS ANSWERED.
[2018-10-01] MEDS ORDERED: LOSA50TA14 PO (11:30)
[2018-10-01] MEDS ORDERED: CARV3.122 PO (11:30)
[2018-10-01] MEDS ORDERED: BISACODYL 10 MG SUPP PR PRN (16:00)
[2018-10-01] MEDS ORDERED: POLYETHYLENE GLYCOL 17 GM PACKET PO PRN (16:00)
[2018-10-01] MEDS ORDERED: ENALAPRILAT 1.25 MG/ML, 2ML IVPush PRN (16:00)
[2018-10-01] MEDS: SODIUM CHLORIDE 0.9% 1,000 ML IV SCH (16:49)
[2018-10-01] MEDS: ATORVASTATIN 40 MG TABLET PO SCH (19:59)
[2018-10-01] MEDS: ALLOPURINOL 100 MG TABLET PO SCH (19:59)
[2018-10-01] MEDS: ACETAMINOPHEN 325 MG TABLET PO PRN (19:59)
[2018-10-01] MEDS: LOSARTAN 25MG TABLET PO SCH (20:04)
[2018-10-02] MEDS: SODIUM CHLORIDE 0.9% 1,000 ML IV SCH ×2 (00:47→11:50)
[2018-10-02] MEDS: ACETAMINOPHEN 325 MG TABLET PO PRN ×2 (03:35→19:47)
[2018-10-02 04:29] LABS: BASOPHILS # (AUTO) 0.03 x10^3/uL (0-0.1); BASOPHILS % (AUTO) 1 % (0-1); EOSINOPHILS # (AUTO) 0.46 x10^3/uL (0-0.4); EOSINOPHILS % (AUTO) 9 % (1-7); LYMPHOCYTES # (AUTO) 1.29 x10^3/uL (1-3.4); LYMPHOCYTES % (AUTO) 24 % (22-44); MD NO; MEAN CORPUSCULAR HEMOGLOBIN 31.6 pg (27.5-34.5); MEAN CORPUSCULAR HGB CONC 33.1 g/dL (33.2-36.2); MEAN CORPUSCULAR VOLUME 95.4 fL (81-97); MEAN PLATELET VOLUME 8.4 fL (7.4-10.4); MONOCYTES # (AUTO) 0.65 x10^3/uL (0.2-0.8); MONOCYTES % (AUTO) 12 % (2-9); NEUTROPHILS # (AUTO) 2.87 x10^3/uL (1.8-6.8); NEUTROPHILS % (AUTO) 54 % (42-75); PLATELET COUNT 192 x10^3/uL (130-400); RED BLOOD COUNT 3.83 x10^6/uL (4.38-5.82); RED CELL DISTRIBUTION WIDTH 18.9 % (9.4-14.8)
[2018-10-02 04:41] LABS: ALBUMIN 2.9 g/dL (3.4-5.0); ANION GAP 8 mmol/L (5-15); CALCIUM 8.5 mg/dL (8.5-10.1); CHLORIDE 103 mmol/L (98-107)
[2018-10-02 04:45] LABS: ALANINE AMINOTRANSFERASE 18 U/L (12-78); ALKALINE PHOSPHATASE 286 U/L (45-117); CREATININE 0.86 mg/dL (0.7-1.3); TOTAL PROTEIN 6.2 g/dL (6.4-8.2)
[2018-10-02] MEDS: LEVOTHYROXINE 75 MCG TABLET PO SCH (09:00)
[2018-10-02] MEDS: POTASSIUM CHLORIDE 20 MEQ TAB.ER.PRT PO SCH (09:00)
[2018-10-02] MEDS: CARVEDILOL 3.125 MG TABLET PO SCH (09:00)
[2018-10-02] MEDS: FUROSEMIDE 40 MG TABLET PO SCH (09:00)
[2018-10-02] MEDS: ALLOPURINOL 100 MG TABLET PO SCH ×2 (09:00→21:04)
[2018-10-02 12:07] LABS: TROPONIN I 0.127 ng/mL (0.000-0.045)
[2018-10-02] MEDS ORDERED: FENTANYL PF 100 MCG/2ML ONE (12:34)
[2018-10-02] MEDS ORDERED: CEFAZOLIN PMX 1GM/50ML 50 ML ONE (12:34)
[2018-10-02] MEDS ORDERED: MIDAZOLAM 1 MG/ML, 5ML ONE (12:34)
[2018-10-02] MEDS ORDERED: LIDOCAINE 2%, 20ML ONE (12:35)
[2018-10-02] MEDS ORDERED: CEFAZOLIN 1,000 MG ONE (12:35)
[2018-10-02] MEDS ORDERED: HOLD MEDICATION MC PRN (13:30)
[2018-10-02] MEDS ORDERED: ACETAMINOPHEN 325 MG TABLET PO PRN (13:30)
[2018-10-02] MEDS: CEFAZOLIN PMX 1GM/50ML 50 ML IVPB SCH (19:41)
[2018-10-02] MEDS: SODIUM CHLORIDE FLUSH 10ML SYR IVF SCH (21:03)
[2018-10-02] MEDS: LOSARTAN 25MG TABLET PO SCH (21:04)
[2018-10-02] MEDS: ATORVASTATIN 40 MG TABLET PO SCH (21:04)
[2018-10-03] MEDS: CEFAZOLIN PMX 1GM/50ML 50 ML IVPB SCH (04:10)
[2018-10-03 05:08] LABS: BASOPHILS # (AUTO) 0.02 x10^3/uL (0-0.1); BASOPHILS % (AUTO) 0 % (0-1); EOSINOPHILS # (AUTO) 0.35 x10^3/uL (0-0.4); EOSINOPHILS % (AUTO) 7 % (1-7); LYMPHOCYTES # (AUTO) 0.83 x10^3/uL (1-3.4); LYMPHOCYTES % (AUTO) 16 % (22-44); MD NO; MEAN CORPUSCULAR HEMOGLOBIN 31.8 pg (27.5-34.5); MEAN CORPUSCULAR HGB CONC 33.2 g/dL (33.2-36.2); MEAN CORPUSCULAR VOLUME 95.7 fL (81-97); MEAN PLATELET VOLUME 7.9 fL (7.4-10.4); MONOCYTES # (AUTO) 0.49 x10^3/uL (0.2-0.8); MONOCYTES % (AUTO) 9 % (2-9); NEUTROPHILS # (AUTO) 3.57 x10^3/uL (1.8-6.8); NEUTROPHILS % (AUTO) 68 % (42-75); PLATELET COUNT 193 x10^3/uL (130-400); RED BLOOD COUNT 3.74 x10^6/uL (4.38-5.82); RED CELL DISTRIBUTION WIDTH 19.5 % (9.4-14.8)
[2018-10-03 05:28] LABS: ALBUMIN 2.7 g/dL (3.4-5.0); ANION GAP 7 mmol/L (5-15); CALCIUM 8.3 mg/dL (8.5-10.1); CHLORIDE 106 mmol/L (98-107)
[2018-10-03 05:32] LABS: ALANINE AMINOTRANSFERASE 16 U/L (12-78); ALKALINE PHOSPHATASE 268 U/L (45-117); BILIRUBIN,TOTAL 1.4 mg/dL (0.2-1.0); CREATININE 0.94 mg/dL (0.7-1.3); TOTAL PROTEIN 5.9 g/dL (6.4-8.2)
[2018-10-03] MEDS: LEVOTHYROXINE 75 MCG TABLET PO SCH (05:51)
[2018-10-03] MEDS: CARVEDILOL 3.125 MG TABLET PO SCH (08:00)
[2018-10-03] MEDS: POTASSIUM CHLORIDE 20 MEQ TAB.ER.PRT PO SCH (08:00)
[2018-10-03] MEDS: FUROSEMIDE 40 MG TABLET PO SCH (08:00)
[2018-10-03] MEDS: SODIUM CHLORIDE FLUSH 10ML SYR IVF SCH ×2 (08:01→20:58)
[2018-10-03] MEDS: ALLOPURINOL 100 MG TABLET PO SCH ×2 (08:01→20:58)
[2018-10-03] MEDS: SODIUM CHLORIDE 0.9% 1,000 ML IV SCH (08:01)
[2018-10-03] MEDS: ACETAMINOPHEN 325 MG TABLET PO PRN ×3 (08:01→21:51)
[2018-10-03] MEDS ORDERED: MAGNESIUM SULFATE PMX 2GM/50ML 50 ML IV ONE (11:00)
[2018-10-03] MEDS: ATORVASTATIN 40 MG TABLET PO SCH (20:58)
[2018-10-03] MEDS: LOSARTAN 25MG TABLET PO SCH (20:58)
[2018-10-04] MEDS: DOCUSATE 100 MG CAPSULE PO PRN (00:53)
[2018-10-04] MEDS: LEVOTHYROXINE 75 MCG TABLET PO SCH (06:00)
[2018-10-04 06:04] LABS: BASOPHILS # (AUTO) 0.01 x10^3/uL (0-0.1); BASOPHILS % (AUTO) 0 % (0-1); CHLORIDE 104 mmol/L (98-107); EOSINOPHILS # (AUTO) 0.99 x10^3/uL (0-0.4); EOSINOPHILS % (AUTO) 15 % (1-7); LYMPHOCYTES # (AUTO) 1.15 x10^3/uL (1-3.4); LYMPHOCYTES % (AUTO) 17 % (22-44); MD NO; MEAN CORPUSCULAR HEMOGLOBIN 31.6 pg (27.5-34.5); MEAN CORPUSCULAR HGB CONC 33.3 g/dL (33.2-36.2); MEAN CORPUSCULAR VOLUME 94.8 fL (81-97); MEAN PLATELET VOLUME 7.4 fL (7.4-10.4); MONOCYTES # (AUTO) 0.81 x10^3/uL (0.2-0.8); MONOCYTES % (AUTO) 12 % (2-9); NEUTROPHILS # (AUTO) 3.67 x10^3/uL (1.8-6.8); NEUTROPHILS % (AUTO) 55 % (42-75); PLATELET COUNT 203 x10^3/uL (130-400); RED BLOOD COUNT 3.86 x10^6/uL (4.38-5.82); RED CELL DISTRIBUTION WIDTH 19.3 % (9.4-14.8)
[2018-10-04 06:09] LABS: ANION GAP 7 mmol/L (5-15); CALCIUM 8.7 mg/dL (8.5-10.1); CREATININE 0.87 mg/dL (0.7-1.3)
[2018-10-04] MEDS ORDERED: MAGNESIUM SULFATE 4 GM in SODIUM CHLORIDE 0.9% 100 ML IV ONE (08:00)
[2018-10-04] MEDS: POTASSIUM CHLORIDE 20 MEQ TAB.ER.PRT PO SCH (09:00)
[2018-10-04] MEDS: FUROSEMIDE 40 MG TABLET PO SCH (09:00)
[2018-10-04] MEDS: SODIUM CHLORIDE FLUSH 10ML SYR IVF SCH ×2 (09:26→20:33)
[2018-10-04] MEDS: CARVEDILOL 3.125 MG TABLET PO SCH (12:17)
[2018-10-04] MEDS: ALLOPURINOL 100 MG TABLET PO SCH ×2 (12:17→20:32)
[2018-10-04] MEDS ORDERED: REGADENOSON 0.4 MG/5 ML SYRINGE ONE (14:53)
[2018-10-04] MEDS: LOSARTAN 25MG TABLET PO SCH (20:33)
[2018-10-04] MEDS: ATORVASTATIN 40 MG TABLET PO SCH (20:33)
[2018-10-04] MEDS: ACETAMINOPHEN 325 MG TABLET PO PRN (22:04)
[2018-10-05] MEDS: LEVOTHYROXINE 75 MCG TABLET PO SCH (05:33)
[2018-10-05 07:19] LABS: ANION GAP 8 mmol/L (5-15); CALCIUM 8.5 mg/dL (8.5-10.1); CHLORIDE 104 mmol/L (98-107); CREATININE 0.95 mg/dL (0.7-1.3)
[2018-10-05 07:29] LABS: BASOPHILS # (AUTO) 0.03 x10^3/uL (0-0.1); BASOPHILS % (AUTO) 1 % (0-1); EOSINOPHILS # (AUTO) 1.34 x10^3/uL (0-0.4); EOSINOPHILS % (AUTO) 22 % (1-7); LYMPHOCYTES # (AUTO) 1.41 x10^3/uL (1-3.4); LYMPHOCYTES % (AUTO) 23 % (22-44); MD SCAN; MEAN CORPUSCULAR HEMOGLOBIN 30.8 pg (27.5-34.5); MEAN CORPUSCULAR HGB CONC 32.4 g/dL (33.2-36.2); MEAN CORPUSCULAR VOLUME 95.2 fL (81-97); MEAN PLATELET VOLUME 7.8 fL (7.4-10.4); MONOCYTES # (AUTO) 0.73 x10^3/uL (0.2-0.8); MONOCYTES % (AUTO) 12 % (2-9); NEUTROPHILS # (AUTO) 2.72 x10^3/uL (1.8-6.8); NEUTROPHILS % (AUTO) 44 % (42-75); PLATELET COUNT 209 x10^3/uL (130-400); RED BLOOD COUNT 3.84 x10^6/uL (4.38-5.82); RED CELL DISTRIBUTION WIDTH 19.4 % (9.4-14.8)
[2018-10-05] MEDS: SODIUM CHLORIDE FLUSH 10ML SYR IVF SCH ×2 (08:56→20:47)
[2018-10-05] MEDS: ALLOPURINOL 100 MG TABLET PO SCH ×2 (08:56→20:47)
[2018-10-05] MEDS: CARVEDILOL 3.125 MG TABLET PO SCH (08:56)
[2018-10-05] MEDS: FUROSEMIDE 40 MG TABLET PO SCH (08:56)
[2018-10-05] MEDS: POTASSIUM CHLORIDE 20 MEQ TAB.ER.PRT PO SCH (08:56)
[2018-10-05] MEDS ORDERED: MAGNESIUM SULFATE PMX 4GM/100M 100 ML IVPB ONE (10:30)
[2018-10-05] MEDS ORDERED: MAGNESIUM SULFATE 4 GM in SODIUM CHLORIDE 0.9% 100 ML IV ONE (10:30)
[2018-10-05 13:10] VITALS: BP 121/63
[2018-10-05 20:07] VITALS: BP 105/61
[2018-10-05] MEDS: LOSARTAN 25MG TABLET PO SCH (20:46)
[2018-10-05] MEDS: ATORVASTATIN 40 MG TABLET PO SCH (20:46)
[2018-10-05] MEDS: DOCUSATE 100 MG CAPSULE PO PRN (20:48)
[2018-10-06 01:26] VITALS: BP 151/90
[2018-10-06 05:12] LABS: BASOPHILS # (AUTO) 0.05 x10^3/uL (0-0.1); BASOPHILS % (AUTO) 1 % (0-1); EOSINOPHILS # (AUTO) 1.33 x10^3/uL (0-0.4); EOSINOPHILS % (AUTO) 22 % (1-7); LYMPHOCYTES # (AUTO) 1.34 x10^3/uL (1-3.4); LYMPHOCYTES % (AUTO) 23 % (22-44); MD NO; MEAN CORPUSCULAR HGB CONC 32.6 g/dL (33.2-36.2); MEAN CORPUSCULAR VOLUME 95.1 fL (81-97); MEAN PLATELET VOLUME 8.2 fL (7.4-10.4); MONOCYTES % (AUTO) 10 % (2-9); NEUTROPHILS # (AUTO) 2.62 x10^3/uL (1.8-6.8); NEUTROPHILS % (AUTO) 44 % (42-75); PLATELET COUNT 193 x10^3/uL (130-400); RED BLOOD COUNT 3.89 x10^6/uL (4.38-5.82); RED CELL DISTRIBUTION WIDTH 19.6 % (9.4-14.8)
[2018-10-06 05:26] LABS: CHLORIDE 101 mmol/L (98-107)
[2018-10-06 05:31] LABS: ANION GAP 9 mmol/L (5-15); CALCIUM 8.4 mg/dL (8.5-10.1); CREATININE 0.99 mg/dL (0.7-1.3)
[2018-10-06] MEDS: LEVOTHYROXINE 75 MCG TABLET PO SCH (05:46)
[2018-10-06] MEDS: ALLOPURINOL 100 MG TABLET PO SCH ×2 (09:02→20:52)
[2018-10-06] MEDS: FUROSEMIDE 40 MG TABLET PO SCH (09:02)
[2018-10-06] MEDS: CARVEDILOL 3.125 MG TABLET PO SCH (09:02)
[2018-10-06] MEDS: POTASSIUM CHLORIDE 20 MEQ TAB.ER.PRT PO SCH (09:02)
[2018-10-06] MEDS: SODIUM CHLORIDE FLUSH 10ML SYR IVF SCH ×2 (09:03→20:53)
[2018-10-06] MEDS: AMIODARONE 200 MG TABLET PO SCH ×3 (09:03→20:52)
[2018-10-06 12:30] VITALS: BP 116/70
[2018-10-06] MEDS: ARTIFICIAL TEARS 15 DROP/ML BOTTLE EACHEYE PRN (16:44)
[2018-10-06 19:32] VITALS: BP 110/65
[2018-10-06] MEDS: LOSARTAN 25MG TABLET PO SCH (20:50)
[2018-10-06] MEDS: ATORVASTATIN 40 MG TABLET PO SCH (20:52)
[2018-10-06] MEDS: DOCUSATE 100 MG CAPSULE PO PRN (21:21)
[2018-10-07 00:48] VITALS: BP 119/78
[2018-10-07 05:06] LABS: ALBUMIN 3.2 g/dL (3.4-5.0); ANION GAP 6 mmol/L (5-15); CALCIUM 8.5 mg/dL (8.5-10.1); CHLORIDE 101 mmol/L (98-107)
[2018-10-07 05:13] LABS: CREATININE 1.06 mg/dL (0.7-1.3)
[2018-10-07] MEDS ORDERED: MAGNESIUM SULFATE PMX 2GM/50ML 50 ML IV ONE ×2 (06:00→09:30)
[2018-10-07] MEDS: LEVOTHYROXINE 75 MCG TABLET PO SCH (06:05)
[2018-10-07 08:04] VITALS: BP 106/67
[2018-10-07] MEDS: AMIODARONE 200 MG TABLET PO SCH ×2 (08:48→20:02)
[2018-10-07] MEDS: ALLOPURINOL 100 MG TABLET PO SCH ×2 (08:48→20:02)
[2018-10-07] MEDS: POTASSIUM CHLORIDE 20 MEQ TAB.ER.PRT PO SCH (08:49)
[2018-10-07] MEDS: FUROSEMIDE 40 MG TABLET PO SCH (08:49)
[2018-10-07] MEDS: CARVEDILOL 3.125 MG TABLET PO SCH (09:09)
[2018-10-07] MEDS ORDERED: SODIUM CHLORIDE 0.9%, 250ML IVBOLUS ONE (09:30)
[2018-10-07] MEDS: DABIGATRAN 150 MG CAPSULE PO SCH ×2 (09:50→20:02)
[2018-10-07] MEDS: SODIUM CHLORIDE FLUSH 10ML SYR IVF SCH ×2 (09:53→20:03)
[2018-10-07 10:03] VITALS: BP 106/68
[2018-10-07 13:10] VITALS: BP 113/69
[2018-10-07 20:00] VITALS: BP 98/61
[2018-10-07] MEDS: ATORVASTATIN 40 MG TABLET PO SCH (20:02)
[2018-10-07] MEDS: DOCUSATE 100 MG CAPSULE PO PRN (20:02)
[2018-10-07] MEDS: LOSARTAN 25MG TABLET PO SCH (20:03)
[2018-10-08 02:19] VITALS: BP 125/78
[2018-10-08] MEDS: ARTIFICIAL TEARS 15 DROP/ML BOTTLE EACHEYE PRN (03:30)
[2018-10-08] MEDS: LEVOTHYROXINE 75 MCG TABLET PO SCH (05:32)
[2018-10-08 07:04] VITALS: BP 129/80
[2018-10-08] MEDS: SODIUM CHLORIDE FLUSH 10ML SYR IVF SCH ×2 (08:30→20:54)
[2018-10-08] MEDS: AMIODARONE 200 MG TABLET PO SCH ×2 (08:33→20:53)
[2018-10-08] MEDS: DABIGATRAN 150 MG CAPSULE PO SCH ×2 (08:33→20:53)
[2018-10-08] MEDS: CARVEDILOL 3.125 MG TABLET PO SCH (08:33)
[2018-10-08] MEDS: ALLOPURINOL 100 MG TABLET PO SCH ×2 (08:33→20:54)
[2018-10-08 09:05] LABS: ANION GAP 6 mmol/L (5-15); CALCIUM 8.3 mg/dL (8.5-10.1); CHLORIDE 99 mmol/L (98-107); CREATININE 1.08 mg/dL (0.7-1.3)
[2018-10-08 10:31] LABS: ALANINE AMINOTRANSFERASE 17 U/L (12-78); ALBUMIN 3.1 g/dL (3.4-5.0)
[2018-10-08 10:35] LABS: ALKALINE PHOSPHATASE 258 U/L (45-117); BILIRUBIN,TOTAL 1.4 mg/dL (0.2-1.0); TOTAL PROTEIN 6.2 g/dL (6.4-8.2)
[2018-10-08] MEDS ORDERED: LIDOCAINE-MPF 1%, 5ML ONE (13:54)
[2018-10-08 15:10] VITALS: BP 103/65
[2018-10-08 19:00] VITALS: BP 112/68
[2018-10-08] MEDS: ATORVASTATIN 40 MG TABLET PO SCH (20:53)
[2018-10-08] MEDS: LOSARTAN 25MG TABLET PO SCH (20:54)
[2018-10-08] MEDS: DOCUSATE 100 MG CAPSULE PO PRN (20:57)
[2018-10-08] MEDS ORDERED: MAGNESIUM SULFATE PMX 2GM/50ML 50 ML IV ONE (22:30)
[2018-10-09 01:16] VITALS: BP 128/79
[2018-10-09] MEDS: ARTIFICIAL TEARS 15 DROP/ML BOTTLE EACHEYE PRN (01:32)
[2018-10-09 05:39] LABS: ANION GAP 7 mmol/L (5-15); CALCIUM 8.4 mg/dL (8.5-10.1); CHLORIDE 100 mmol/L (98-107); CREATININE 0.92 mg/dL (0.7-1.3)
[2018-10-09] MEDS: LEVOTHYROXINE 75 MCG TABLET PO SCH (05:58)
[2018-10-09 06:42] VITALS: BP 116/67
[2018-10-09] MEDS ORDERED: CARVEDILOL 3.125 MG TABLET PO SCH (09:00)
[2018-10-09] MEDS ORDERED: FUROSEMIDE 20 MG TABLET PO SCH (09:00)
[2018-10-09] MEDS: ALLOPURINOL 100 MG TABLET PO SCH (09:19)
[2018-10-09] MEDS: AMIODARONE 200 MG TABLET PO SCH (09:20)
[2018-10-09] MEDS: DABIGATRAN 150 MG CAPSULE PO SCH (09:23)
[2018-10-09] MEDS: SODIUM CHLORIDE FLUSH 10ML SYR IVF SCH (09:27)
[2018-10-09] MEDS ORDERED: FURO20TA3 PO (11:06)
[2018-10-09] MEDS ORDERED: AMIO200T42 PO (11:06)
== END 2018-10-09 16:34 | disposition home or self-care (01) | DRG 260 ==
LOC: ED 10:24 → EDIP 10:34 → CCU 12:31 → 5SO 10-05 12:31 → DCLOUNGE 10-09 15:40
PROVIDERS: ADMIT Hospitalist; ATTEND Hospitalist
PROC: 4B02XTZ Measurement of Cardiac Defibrillator, External Approach (ICD-10-PCS; principal; 2018-10-01)
PROC: 02PA0MZ Removal of Cardiac Lead from Heart, Open Approach (ICD-10-PCS; 2018-10-02)
PROC: 0W993ZZ Drainage of Right Pleural Cavity, Percutaneous Approach (ICD-10-PCS; 2018-10-08)
DX: T82.110A Breakdown (mechanical) of cardiac electrode, initial encounter (principal); I50.43 Acute on chronic combined systolic (congestive) and diastolic (congestive) heart failure; I47.2 Ventricular tachycardia; E87.1 Hypo-osmolality and hyponatremia; D68.69 Other thrombophilia; E03.9 Hypothyroidism, unspecified; E78.5 Hyperlipidemia, unspecified; E83.42 Hypomagnesemia; I08.1 Rheumatic disorders of both mitral and tricuspid valves; I11.0 Hypertensive heart disease with heart failure; I25.10 Atherosclerotic heart disease of native coronary artery without angina pectoris; I25.2 Old myocardial infarction; I25.5 Ischemic cardiomyopathy; I48.2 Chronic atrial fibrillation; K21.9 Gastro-esophageal reflux disease without esophagitis; M10.9 Gout, unspecified; Y92.89 Other specified places as the place of occurrence of the external cause; Z79.01 Long term (current) use of anticoagulants; Z79.02 Long term (current) use of antithrombotics/antiplatelets; Z79.899 Other long term (current) drug therapy; Z80.0 Family history of malignant neoplasm of digestive organs; Z82.49 Family history of ischemic heart disease and other diseases of the circulatory system; Z82.5 Family history of asthma and other chronic lower respiratory diseases; Z86.73 Personal history of transient ischemic attack (TIA), and cerebral infarction without residual deficits; Z87.11 Personal history of peptic ulcer disease; Z87.891 Personal history of nicotine dependence; Z90.49 Acquired absence of other specified parts of digestive tract; Z95.0 Presence of cardiac pacemaker; Z95.5 Presence of coronary angioplasty implant and graft; Z95.810 Presence of automatic (implantable) cardiac defibrillator; Z96.641 Presence of right artificial hip joint; T50.2X5A Adverse effect of carbonic-anhydrase inhibitors, benzothiadiazides and other diuretics, initial encounter; Y71.2 Prosthetic and other implants, materials and accessory cardiovascular devices associated with adverse incidents; Z88.8 Allergy status to other drugs, medicaments and biological substances
CPT/HCPCS: 0399T; 32555; 33244; 36415; 71045; 71046; 78452; 80048; 80053; 82040; 82042; 82306; 82607; 82728; 82945; 83540; 83550; 83615; 83735; 83880; 84100; 84157; 84466; 84484; 85025; 85610; 85730; 87070; 87081; 87205; 88112; 88305; 89051; 93005; 93017; 93306; 99156; 99285; G0378; J0690; J2250; J2785; J3010; J3475; J3490; A9502; C9898; J7030; J7050